=== PATIENT | male | born 1955 | race African-American/Black ===

== ENCOUNTER 2018-07-06 17:43 | Inpatient (IN) | payer OTHER ==
[2018-07-06 17:52] VITALS: BMI 24.0
--- NOTE | 2018-07-06 19:01 | PDOC ---
History of Present Illness - General Chief Complaint: Revisit,Radiology Variance Stated Complaint: ABNORMAL EKG Time Seen by Provider: 07/06/18 18:32 History Source: Patient Exam Limitations: No Limitations - History of Present Illness Initial Comments: 07/06/18 18:56 62 yo male pmh HTN and HLD presents to the ED from Urgent care for non exertional pounding in his chest that started today. Pt recently immigrated from [facility] 1 month ago, does not have PCP, is taking Losartan, statin and ASA 75 mg daily. Pt states the "pounding" in his chest began this morning while resting at home, has been constant, without CP, N/V, diaphoresis, back pain. Pt admits that these symptoms have happened in the past and have self resolved. Denies weakness F/C/N/V, CP, SOB, back pain, abdominal pain, changes in bowel or bladder habits. 07/06/18 20:33 Pts daughter at bedside helps provide HPI, states pt has had approx 3 episodes of syncope over the past 15 years, no known arrhythmias, CAD, MIs or cardiac procedures. Pt only treated for HTN and HLD. Past History - Past Medical History Allergies/Adverse Reactions: Allergies Allergy/AdvReac Type Severity Reaction Status Date / Time No Known Allergies Allergy Verified 07/06/18 17:55 Home Medications: Ambulatory Orders Atorvastatin Calcium [Lipitor] 10 mg PO DAILY 07/06/18 Losartan Potassium [Cozaar -] 50 mg PO DAILY 07/06/18 COPD: No HTN: Yes Hypercholesterolemia: Yes Lung CA: Yes (depression) - Suicide/Smoking/Psychosocial Hx Smoking History: Unknown if ever smoked Have you smoked in the past 12 months: No Information on smoking cessation initiated: No Hx Alcohol Use: No Drug/Substance Use Hx: No *Physical Exam - Vital Signs Last Vital Signs Temp Pulse Resp BP Pulse Ox 97.9 F 72 16 144/70 100 07/06/18 17:46 07/06/18 17:46 07/06/18 17:46 07/06/18 17:46 07/06/18 17:46 ED Treatment Course - LABORATORY CBC & Chemistry Diagram: 07/06/18 19:02 07/06/18 19:02 - RADIOLOGY Radiology Studies Ordered: Category Date Time Status CHEST X-RAY PORTABLE* [RAD] Stat Radiology 07/06/18 18:43 Ordered Medical Decision Making - Medical Decision Making 62 yo male pmh HTN and HLD presents to the ED from Urgent care for non exertional pounding in his chest that started today. Pt recently immigrated from [facility] 1 month ago, does not have PCP, is taking Losartan, statin and ASA 75 mg daily. Pt states the "pounding" in his chest began this morning while resting at home, has been constant, without CP, N/V, diaphoresis, back pain. Pt admits that these symptoms have happened in the past and have self resolved. Denies weakness F/C/N/V, CP, SOB, back pain, abdominal pain, changes in bowel or bladder habits. Pts daughter at bedside helps provide HPI, states pt has had approx 3 episodes of syncope over the past 15 years, no known arrhythmias, CAD, MIs or cardiac procedures. Pt only treated for HTN and HLD. Vitals stable, rate 75, BP 140s 07/06/18 20:25 Dr. Fan present in the ED, would like Lopressor 25mg BID and anticouagulation started and states he will see the pt in the AM. *DC/Admit/Observation/Transfer Diagnosis at time of Disposition: Atrial flutter Qualifiers: Atrial flutter type: unspecified Qualified Code(s): I48.92 - Unspecified atrial flutter - Discharge Dispostion Condition at time of disposition: Stable Decision to Admit order: Yes - Referrals - Patient Instructions - Post Discharge Activity
--- NOTE | 2018-07-06 19:12 | PDOC ---
Attending Attestation - Resident Resident Name: Christopher Figueroa - ED Attending Attestation I have performed the following: I have examined & evaluated the patient, The case was reviewed & discussed with the resident, I agree w/resident's findings & plan - HPI HPI: 07/06/18 19:22 62 YOM with PMH HTN, HLD, presenting from urgent care with chest pounding. the patient has constant chest pounding discomfort, unrelieved with rest. no f/c, n/ v, sob. recently from [facility] - Physicial Exam PE: 07/06/18 19:13 NAD, EOMI, PERRL, nl conjunctiva, anicteric; neck supple. lungs clear, irregularly irregular, normal rate, no murmur, abdomen soft nontender. Back nontender. CARTER x4, no peripheral edema, normal color for ethnicity, WWP. - Medical Decision Making 07/06/18 19:23 History and physical examination as documented. Vital signs within normal limits , school lunch monitor reveals a flutter with variable AV block at 75 bpm. He is appearing pretty comfortable. Exam is unremarkable. basic labs and trop/CXR. Consulted with cardiology on-call doctor she and recommended Toprol twice a day for rate control and anticoagulation to be discussed. Admit for telemetry/ evaluate for ACS, medical management. 07/09/18 13:38 Heart Score/ECG Review #1 ECG reviewed & interpreted by me at: 19:00 General ECG Interpretation: Normal Rate, Normal Intervals Compared to previous ECG there are: Previous ECG unavail 07/06/18 19:12 aflutter
[2018-07-06] MEDS ORDERED: dilTIAZem HCL 30 MG TABLET (FP) PO ONE (19:22)
[2018-07-06] MEDS ORDERED: METOPROLOL TARTRATE 25 MG TABLET (FP) PO ONE (19:22)
[2018-07-06 19:24] LABS: BASO % 1.1 % (0-2.0); EOS % 2.8 % (0-4.5); HEMATOCRIT 45.7 % (35.4-49); LYMPH % 43.8 % (8-40); MCH 32.9 pg (25.7-33.7); MCHC 32.8 g/dl (32.0-35.9); MEAN CELL VOLUME 100.2 fl (80-96); MONO % 8.6 % (3.8-10.2); NEUT % 43.7 % (42.8-82.8); PLATELET COUNT 156 K/MM3 (134-434); RBC 4.57 M/mm3 (4.00-5.60); RDW 14.3 % (11.9-15.9); WHITE BLOOD COUNT 4.1 K/mm3 (4.0-10.0)
[2018-07-06] MEDS ORDERED: ENOXAPARIN NA (PORCINE) 60 MG/0.6 ML DISP.SYRIN SQ ONE ×2 (19:29→19:30)
[2018-07-06] MEDS ORDERED: METOPROLOL TARTRATE 25 MG TABLET (FP) ONE (19:29)
[2018-07-06] MEDS ORDERED: ENOXAPARIN NA (PORCINE) 60 MG/0.6 ML DISP.SYRIN SQ SCH (19:30)
--- NOTE | 2018-07-06 19:39 | PDOC ---
*Physical Exam - Vital Signs Last Vital Signs Temp Pulse Resp BP Pulse Ox 97.9 F 72 16 144/70 100 07/06/18 17:46 07/06/18 17:46 07/06/18 17:46 07/06/18 17:46 07/06/18 17:46 ED Treatment Course - LABORATORY CBC & Chemistry Diagram: 07/06/18 19:02 07/07/18 06:35 - ADDITIONAL ORDERS Additional order review: 07/06/18 19:02 RBC 4.57 MCV 100.2 H MCHC 32.8 RDW 14.3 MPV 9.0 Neutrophils % 43.7 Lymphocytes % 43.8 H Monocytes % 8.6 Eosinophils % 2.8 Basophils % 1.1 Medical Decision Making - Medical Decision Making 07/06/18 19:33 Pt signed out to me at signout. We sidelined the service delivery management consultant who was in the ER, and he is recommending lopressor BID. Cardiology will see the patient tomorrow. Pt is comfortable at this time. He is in aflutter; comes with an EKG showing aflutter from the clinic earlier today. 07/06/18 20:06 07/06/18 20:07 Pt has normal labs; trop is negative. Pt has clear AP CXR *DC/Admit/Observation/Transfer Diagnosis at time of Disposition: Atrial flutter - Discharge Dispostion Condition at time of disposition: Stable - Referrals - Patient Instructions - Post Discharge Activity
[2018-07-06 19:56] LABS: ALBUMIN 3.8 g/dl (3.4-5.0); ALK PHOS 61 U/L (45-117); ANION GAP 8 MMOL/L (8-16); BILIRUBIN,TOTAL 0.5 mg/dL (0.2-1); BLOOD UREA NITROGEN 15 mg/dL (7-18); CALCIUM 9.2 mg/dL (8.5-10.1); CHLORIDE 106 mmol/L (98-107); CHOLESTEROL 158 mg/dL (50-200); CO2 28 mmol/L (21-32); CREATININE 1.4 mg/dL (0.55-1.3); GLUCOSE,RANDOM 87 mg/dL (74-106); N-TERMINAL BNP 354.4 pg/ml (5-125); POTASSIUM 4.8 mmol/L (3.5-5.1); SGOT/AST 20 U/L (15-37); SGPT/ALT 19 U/L (13-61); SODIUM 141 mmol/L (136-145); TOT PROT 7.2 g/dl (6.4-8.2)
[2018-07-06 20:37] LABS: INR 0.98 (0.83-1.09); PROTHROMBIN TIME (PATIENT) 11.6 SEC (9.7-13.0)
[2018-07-06 20:40] LABS: ACTIVATED PTT 36.1 SECONDS (25.2-36.5)
--- NOTE | 2018-07-06 20:56 | PN ---
Teaching Attending Note Name of Resident: Kristy Parra ATTENDING PHYSICIAN STATEMENT I saw and evaluated the patient. I reviewed the resident's note and discussed the case with the resident. I agree with the resident's findings and plan as documented. SUBJECTIVE: Patient is a 62 year old man with PMH of HTN and HLD presents to the ER from Urgent care for non exertional pounding in his chest that started today. He recently immigrated from [facility] 1 month ago, does not have PCP, is taking Losartan, statin and ASA 75 mg daily. Patient states the "pounding" in his chest began this morning while resting at home, has been constant, without chest pain, nausea, vomiting, diaphoresis or back pain. Patient admits that these symptoms have happened in the past and have self resolved. Denies weakness , fever, chills, SOB, back pain, abdominal pain, changes in bowel or bladder habits. OBJECTIVE: Alert Vital Signs Period Temp Pulse Resp BP Sys/Rey Pulse Ox Last 24 Hr 97.9 F 72-74 16-17 138-144/70-75 100-100 HEENT: No Jaundice, eye redness or discharge, PERRLA, EOMI. Normocephalic, atraumatic. External ears are normal and hearing is grossly intact. No nasal discharge. Neck: Supple, nontender. No palpable adenopathy or thyromegaly. No JVD Chest: Good effort. Clear to auscultation and percussion. Heart: Regular. No S3, rub or murmur Abdomen: Not distended, soft, nontender and no HSM. No rebound or guarding. Normal bowel sounds. Ext: Peripheral pulses intact. No leg edema. Skin: Warm and dry. No petechiae, rash or ecchymosis. Neuro: Alert. Oriented x3. CN 2-12 grossly intact. Sensation grossly intact in all four extremities and DTR are symmetric. Psych: Appropriate mood and affect. Good insight. Current Medications Generic Name Dose Route Start Last Admin Trade Name Freq PRN Reason Stop Dose Admin Atorvastatin Calcium 10 mg 07/07/18 10:00 Lipitor - PO DAILY EMELY Enoxaparin Sodium 63 mg 07/06/18 19:30 07/06/18 19:38 Lovenox - SQ 63 mg ONCE EMELY Administration Sodium Chloride 1,000 mls @ 75 mls/hr 07/06/18 21:15 Normal Saline - IV ASDIR [facility] Home Medications Medication Instructions Recorded Aspirin 75 mg PO DAILY 07/06/18 Atorvastatin Calcium [Lipitor] 10 mg PO DAILY 07/06/18 Losartan Potassium [Cozaar -] 50 mg PO DAILY 07/06/18 Abnormal Lab Results 07/06/18 07/06/18 19:02 19:02 MCV 100.2 H Lymphocytes % 43.8 H Creatinine 1.4 H B-Natriuretic Peptide 354.4 H ASSESSMENT AND PLAN: 1. Atrial flutter - Palpitations likely due to atrial flutter. EKG shows atrial flutter with a rate of 75/minute. Cardiology was consulted and patient is being started on Metoprolol 25 mg bid and lovenox. Initial troponin is negative. No abnormality on CXR. Will admit to telemetry to rule out ACS, get fasting lipids , ECHO, TSH and HbA1c. 2. JASPREET? - Will hold lisinopril, get urinalysis, urine protein/creatinine ratio, kidney sonogram, phosphate and PTH. Hydrate gently. Will avoid nephrotoxic agents such as NSAIDS, aminoglycosides, contrast dyes and certain Alternative medicine products. 3. Hypertension - Restart appropriate outpatient antihypertensive drugs. Hold Lisinopril for now and add HCTZ 12.5 mg qd. Nonpharmacologic measures to control hypertension like weight loss, salt restriction and exercise discussed. 4. DVT prophylaxis - On full dose Lovenox for Atrial flutter. 5. Advance directives - Full code
[2018-07-06] MEDS ORDERED: SODIUM CHLORIDE 1,000 ML IV SCH (21:15)
--- NOTE | 2018-07-06 21:40 | HP ---
CHIEF COMPLAINT: aflutter PCP: none; just moved. PMD in [place] HISTORY OF PRESENT ILLNESS: 62 y/o M with PMH HTN, HLD, ?arrhythmia, who presents to the ED who presents from urgent care c/o sensation of chest pounding and palpitations which began today. As per pt, this AM he developed sudden palpitations when he was at rest. States it was intermittent. Lasting for a few seconds before dissipating and then w/recurrence. Not associated with chest pain or SOB. This sensation continued when pt was at an urgent care today getting a routine physical exam. He was recommended to get an EKG as per routine of the checkup, however was found to have aflutter thus he was told to go to the ED for further evaluation. Denies ERNST, fever, chills, SOB, diaphoresis, or changes in urinary or bowel function. Of note, pt moved from [facility] one month ago. Got his insurance 1 week ago, and plans on residing in this country. Daughter at bedside is a nurse - states he has had multiple episodes of syncope while in [facility]. Had w/u done with ECHO however was never told the result. At home takes asa 75mg (different dose there) , losartan 50mg qd, lipitor 10mg qd. Pt ambulates on own at baseline. ER course was notable for: (1) aflutter , rate 75bpm (2) (3) Recent Travel: denies PAST MEDICAL HISTORY: as above PAST SURGICAL HISTORY: denies Social History: used to work as an corporate staff accountant Smoking: denies Alcohol: denies Drugs: denies Family History: HTN - sisters, brothers Allergies No Known Allergies Allergy (Verified 07/06/18 17:55) HOME MEDICATIONS: Home Medications Medication Instructions Recorded Aspirin 75 mg PO DAILY 07/06/18 Atorvastatin Calcium [Lipitor] 10 mg PO DAILY 07/06/18 Losartan Potassium [Cozaar -] 50 mg PO DAILY 07/06/18 confirmed with daughter REVIEW OF SYSTEMS CONSTITUTIONAL: Absent: fever, chills, diaphoresis, generalized weakness, malaise, loss of appetite, weight change HEENT: Absent: rhinorrhea, nasal congestion, throat pain, throat swelling, difficulty swallowing, mouth swelling, ear pain, eye pain, visual changes CARDIOVASCULAR: Absent: chest pain, syncope, palpitations, irregular heart rate, lightheadedness , peripheral edema RESPIRATORY: Absent: cough, shortness of breath, dyspnea with exertion, orthopnea, wheezing, stridor, hemoptysis GASTROINTESTINAL: Absent: abdominal pain, abdominal distension, nausea, vomiting, diarrhea, constipation, melena, hematochezia GENITOURINARY: Absent: dysuria, frequency, urgency, hesitancy, hematuria, flank pain, genital pain MUSCULOSKELETAL: Absent: myalgia, arthralgia, joint swelling, back pain, neck pain SKIN: Absent: rash, itching, pallor HEMATOLOGIC/IMMUNOLOGIC: Absent: easy bleeding, easy bruising, lymphadenopathy, frequent infections ENDOCRINE: Absent: unexplained weight gain, unexplained weight loss, heat intolerance, cold intolerance NEUROLOGIC: Absent: headache, focal weakness or paresthesias, dizziness, unsteady gait, seizure, mental status changes, bladder or bowel incontinence PSYCHIATRIC: Absent: anxiety, depression, suicidal or homicidal ideation, hallucinations. PHYSICAL EXAMINATION Vital Signs 07/06/18 07/06/18 17:46 19:38 Temperature 97.9 F Pulse Rate 72 Pulse Rate [ 74 Apical] Respiratory 16 17 Rate Blood Pressure 144/70 Blood Pressure 138/75 [Right Arm] O2 Sat by Pulse 100 100 Oximetry (%) GENERAL: Awake, alert, and fully oriented, in no acute distress. HEAD: Normal with no signs of trauma. EYES: Pupils equal, round and reactive to light, extraocular movements intact, sclera anicteric, conjunctiva clear. EARS, NOSE, THROAT: Ears normal, nares patent, oropharynx clear without exudates. Moist mucous membranes. NECK: Normal range of motion, supple without lymphadenopathy LUNGS: Breath sounds equal, clear to auscultation bilaterally. No wheezes, and no crackles. No accessory muscle use. HEART: +irreg irreg rate and rhythm, normal S1 and S2 without murmur, rub or gallop. ABDOMEN: Soft, nontender, not distended, normoactive bowel sounds, no guarding, no rebound, no masses. LOWER EXTREMITIES: 2+ pt pulses, warm, well-perfused. No calf tenderness. No peripheral edema. NEUROLOGICAL: Cranial nerves II-XII intact. PSYCHIATRIC: Cooperative. Good eye contact. Laboratory Results 07/06/18 07/06/18 07/06/18 19:02 19:02 19:02 WBC 4.1 RBC 4.57 Hgb 15.0 Hct 45.7 MCV 100.2 H MCH 32.9 MCHC 32.8 RDW 14.3 Plt Count 156 MPV 9.0 Absolute Neuts (auto) 1.8 Neutrophils % 43.7 Lymphocytes % 43.8 H Monocytes % 8.6 Eosinophils % 2.8 Basophils % 1.1 Nucleated RBC % 0 PT with INR 11.60 INR 0.98 PTT (Actin FS) 36.1 Sodium 141 Potassium 4.8 Chloride 106 Carbon Dioxide 28 Anion Gap 8 BUN 15 Creatinine 1.4 H Est GFR (CKD-EPI)AfAm 61.97 Est GFR (CKD-EPI)NonAf 53.47 Random Glucose 87 Calcium 9.2 Total Bilirubin 0.5 AST 20 ALT 19 Alkaline Phosphatase 61 Creatine Kinase 158 Creatine Kinase Index 0.8 CK-MB (CK-2) 1.4 Troponin I < 0.02 B-Natriuretic Peptide 354.4 H Total Protein 7.2 Albumin 3.8 Cholesterol 158 TSH 3.17 ASSESSMENT/PLAN: 62 y/o M with PMH HTN, HLD, ?arrhythmia, who presents to the ED who presents from urgent care c/o sensation of chest pounding and palpitations which began today. #new aflutter -may have caused eps of syncope in past -for now rate controlled. c/w met tartate 25 mg BID. lopressor 5mg IVP q6h PRN if becomes uncontrolled -seen by cardio in ED. started on a/c lovenox 63mg PO x 1 . will give another dose tomorrow AM (1mg/kg BID ) and then can decide oral agent -f/u ECHO to determine if valvular involvement -f/u lipid profile, a1c. K>4, Mg>2. -c/w lipitor -TSH WNL -Cardio consult: Dr. Fan. saw in ED #HTN- controlled -c/w met tartate 25 BID -can start on hctz 12.5mg PO qd for additional agent as will hold ARB for now #JASPREET vs. JASPREET on CKD -f/u UA, u prot/creat ratio -f/u renal sono -gentle IVF ; IV NS 75 cc/hr #HLD -c/w lipitor #F/E/N IV NS 75 cc/hr continue to follow lytes na controlled diet #PPX on lovenox. cr clearance 49. cont dosing as above 30 #Dispo admit to tele Visit type - Emergency Visit Emergency Visit: Yes ED Registration Date: 07/06/18 Care time: The patient presented to the Emergency Department on the above date and was hospitalized for further evaluation of their emergent condition. - New Patient This patient is new to me today: Yes Date on this admission: 07/06/18 - Critical Care Critical Care patient: No
[2018-07-06] MEDS: ATORVASTATIN CA 10 MG TABLET (FP) PO SCH (22:21)
[2018-07-07] MEDS ORDERED: METOPROLOL TARTRATE 5 MG/5 ML VIAL IVPUSH PRN (02:44)
[2018-07-07] MEDS ORDERED: ENOXAPARIN NA (PORCINE) 60 MG/0.6 ML DISP.SYRIN SQ ONE (08:00)
[2018-07-07 08:13] LABS: ALBUMIN 3.4 g/dl (3.4-5.0); ALK PHOS 56 U/L (45-117); ANION GAP 6 MMOL/L (8-16); BILIRUBIN,TOTAL 0.6 mg/dL (0.2-1); BLOOD UREA NITROGEN 16 mg/dL (7-18); CALCIUM 8.3 mg/dL (8.5-10.1); CHLORIDE 108 mmol/L (98-107); CO2 29 mmol/L (21-32); CREATININE 1.4 mg/dL (0.55-1.3); GLUCOSE,RANDOM 78 mg/dL (74-106); MAGNESIUM 2.3 mg/dL (1.8-2.4); PHOSPHOROUS 3.5 mg/dL (2.5-4.9); POTASSIUM 4.3 mmol/L (3.5-5.1); SGOT/AST 14 U/L (15-37); SGPT/ALT 17 U/L (13-61); SODIUM 142 mmol/L (136-145); TOT PROT 6.5 g/dl (6.4-8.2)
[2018-07-07] MEDS: METOPROLOL TARTRATE 25 MG TABLET (FP) PO SCH ×2 (09:01→22:23)
[2018-07-07] MEDS ORDERED: HYDROCHLOROTHIAZIDE 12.5 MG CAPSULE (FP) PO SCH (10:00)
--- NOTE | 2018-07-07 12:22 | PN ---
Progress Note (short form) - Note Progress Note: continues to have CP but more of discomfort now then pain. states he has these episode intermittently but can not provide how often they occur. denies fever, chills, N/V/C/D. does not know if he has kidney issues Current Medications Generic Name Dose Route Start Last Admin Trade Name Freq PRN Reason Stop Dose Admin Atorvastatin Calcium 10 mg 07/06/18 22:00 07/06/18 22:21 Lipitor - PO 10 mg HS EMELY Administration Hydrochlorothiazide 12.5 mg 07/07/18 10:00 07/07/18 09:02 Hctz - PO 12.5 mg DAILY EMELY Administration Sodium Chloride 1,000 mls @ 75 mls/hr 07/06/18 21:15 07/06/18 22:21 Normal Saline - IV 75 mls/hr ASDIR EMELY Administration Metoprolol Tartrate 25 mg 07/07/18 10:00 07/07/18 09:01 Lopressor - PO 25 mg BID EMELY Administration Metoprolol Tartrate 5 mg 07/07/18 02:44 Lopressor Injection - IVPUSH Q6H PRN TACHYCARDIA Last Vital Signs Temp Pulse Resp BP Pulse Ox 96.3 F L 86 18 103/68 100 07/07/18 09:15 07/07/18 09:15 07/07/18 09:15 07/07/18 09:15 07/06/18 21:39 General NAD CV S1 S2 tachy Lungs CTA B/L no wheezing/rales/rhonchi abdomen soft NT/ND Extremities No edema CBCD WBC 4.1 K/mm3 (4.0-10.0) 07/06/18 19:02 RBC 4.57 M/mm3 (4.00-5.60) 07/06/18 19:02 Hgb 15.0 GM/dL (11.7-16.9) 07/06/18 19:02 Hct 45.7 % (35.4-49) 07/06/18 19:02 MCV 100.2 fl (80-96) H 07/06/18 19:02 MCHC 32.8 g/dl (32.0-35.9) 07/06/18 19:02 RDW 14.3 % (11.9-15.9) 07/06/18 19:02 Plt Count 156 K/MM3 (134-434) 07/06/18 19:02 MPV 9.0 fl (7.5-11.1) 07/06/18 19:02 CMP Sodium 142 mmol/L (136-145) 07/07/18 06:35 Potassium 4.3 mmol/L (3.5-5.1) 07/07/18 06:35 Chloride 108 mmol/L (98-107) H 07/07/18 06:35 Carbon Dioxide 29 mmol/L (21-32) 07/07/18 06:35 Anion Gap 6 MMOL/L (8-16) L 07/07/18 06:35 BUN 16 mg/dL (7-18) 07/07/18 06:35 Creatinine 1.4 mg/dL (0.55-1.3) H 07/07/18 06:35 Calcium 8.3 mg/dL (8.5-10.1) L 07/07/18 06:35 Total Bilirubin 0.6 mg/dL (0.2-1) 07/07/18 06:35 AST 14 U/L (15-37) L 07/07/18 06:35 ALT 17 U/L (13-61) 07/07/18 06:35 Alkaline Phosphatase 56 U/L (45-117) 07/07/18 06:35 Total Protein 6.5 g/dl (6.4-8.2) 07/07/18 06:35 Albumin 3.4 g/dl (3.4-5.0) 07/07/18 06:35 A/P 62yo M with PMH HTN and dyslipidemia presented to the ER with CP and found to be in aflutter 1. New onset aflutter- currently with 3:1 block. [id number] 1. received lovenox in the Er yesterday. will hold on anticoagulation. will start asa. rate is currently controlled with betablocker. cardio consulted. echo pending. will need ischemia eval 2. JASPREET- due to medications vs CKD. uknown baseline. none reported here. renal u/ s pending. cont low dose IVF. if renal function remains the same likely chronic. will try to obtain baseline values on monday. will hold HCTZ. avoid nephrotoxic agents 3. HTN- controlled. hold HCTZ. start new medications if needed 4. Dyslipidemia- check lipid panel. on low intensity statin 5. DVT ppx- hep sq Visit type - Emergency Visit Emergency Visit: Yes ED Registration Date: 07/06/18 Care time: The patient presented to the Emergency Department on the above date and was hospitalized for further evaluation of their emergent condition. - New Patient This patient is new to me today: Yes Date on this admission: 07/07/18 - Critical Care Critical Care patient: No - Discharge Referral Referred to [facility] No
[2018-07-07] MEDS ORDERED: ASPIRIN 81 MG CHEWABLE TABLETS PO SCH (12:30)
[2018-07-07] MEDS ORDERED: HEPARIN NA (PORCINE) 5,000 UNITS/ML 1ML VIAL SQ SCH (14:00)
--- NOTE | 2018-07-07 16:17 | CON.CARD ---
Consult Consult Specialty:: Cardiology Referred by:: Hospitalist Medicine Reason for Consultation:: Rapid aflutter - History of Present Illness Chief Complaint: Palpitations History of Present Illness: Patient is a 62 year old man with PMH of HTN and HLD presents to the ER from Urgent care for palpitations, chronic exertional angina and dyspnea over many years found to be in rate-controlled aflutter. He recently immigrated from [facility] 1 month ago, is taking Losartan 50 qd, Lipitor 10 qd and ASA 75 mg daily. Patient states the "pounding" in his chest began this morning while resting at home, has been constant, without chest pain, near or true syncope, orthopnea, PND or LE edema - History Source History Provided By: Patient Limitations to Obtaining History: No Limitations - Past Medical History Cardio/Vascular: Yes: HTN, Hyperlipdemia - Alcohol/Substance Use Hx Alcohol Use: No - Smoking History Smoking history: Unknown if ever smoked Have you smoked in the past 12 months: No Home Medications - Allergies Allergies/Adverse Reactions: Allergies Allergy/AdvReac Type Severity Reaction Status Date / Time No Known Allergies Allergy Verified 07/06/18 17:55 - Home Medications Home Medications: Ambulatory Orders Aspirin 75 mg PO DAILY 07/06/18 Atorvastatin Calcium [Lipitor] 10 mg PO DAILY 07/06/18 Losartan Potassium [Cozaar -] 50 mg PO DAILY 07/06/18 Review of Systems - Review of Systems Cardiovascular: reports: Chest Pain, Palpitations Respiratory: reports: SOB on Exertion Vital Signs: Vital Signs Temperature 98.4 F 07/07/18 14:00 Pulse Rate 54 L 07/07/18 14:00 Respiratory Rate 20 07/07/18 14:00 Blood Pressure 97/55 L 07/07/18 14:00 O2 Sat by Pulse Oximetry (%) 100 07/06/18 21:39 Constitutional: Yes: No Distress, Calm, Thin Neck: Yes: Supple Respiratory: Yes: Regular, CTA Bilaterally Gastrointestinal: Yes: Normal Bowel Sounds, Soft Cardiovascular: Yes: Regular Rate and Rhythm JVD: No Carotid Bruit: No Heart Sounds: Yes: S1, S2 Edema: No - Other Data Labs, Other Data: CBC, BMP 07/06/18 19:02 07/07/18 06:35 INR, PTT INR 0.98 (0.83-1.09) 07/06/18 19:02 Troponin, BNP 07/06/18 07/07/18 19:02 06:35 Troponin I < 0.02 < 0.02 B-Natriuretic Peptide 354.4 H Troponin, BNP 07/06/18 07/07/18 19:02 06:35 Troponin I < 0.02 < 0.02 B-Natriuretic Peptide 354.4 H Aflutter @ 75 Imaging - Results Chest X-ray: Report Reviewed (NAD) Ultrasound: Report Reviewed (Normal renal US) Problem List - Problems (1) Hypertensive heart disease Code(s): I11.9 - HYPERTENSIVE HEART DISEASE WITHOUT HEART FAILURE Qualifiers: Heart failure presence: without heart failure Qualified Code(s): I11.9 - Hypertensive heart disease without heart failure (2) Hyperlipidemia Code(s): E78.5 - HYPERLIPIDEMIA, UNSPECIFIED Qualifiers: Hyperlipidemia type: pure hypercholesterolemia Qualified Code(s): E78.00 - Pure hypercholesterolemia, unspecified; E78.0 - Pure hypercholesterolemia (3) Atrial flutter Code(s): I48.92 - UNSPECIFIED ATRIAL FLUTTER Qualifiers: Atrial flutter type: typical Qualified Code(s): I48.3 - Typical atrial flutter Assessment/Plan 1. Newly diagnosed rate-controlled aflutter [id number] 2. JASPREET vs CKD 3. Htn heart disease 4. Hyperlipidemia 5. Exertional chest pain and dyspnea P:1. Continue lopressor 25 bid, resume losartan 50 qd once renal fxn stable, lipitor 10 qd per lipid panel, change ASA to Xarelto 20 qpm for possible DCCV attempt in future 2. Check echo to assess ventricular and valve fxn 3. Eventual stress testing for chronic exertional sxs, may be performed as outpatient 4. Thank you for consultative opportunity
[2018-07-07] MEDS: RIVAROXABAN 20 MG TABLET PO SCH (17:20)
[2018-07-07] MEDS: ATORVASTATIN CA 10 MG TABLET (FP) PO SCH (22:22)
[2018-07-08 06:33] LABS: CALCIUM 9.5 mg/dL (8.5-10.1); CREATININE 1.4 mg/dL (0.55-1.3); POTASSIUM 4.1 mmol/L (3.5-5.1)
[2018-07-08] MEDS: METOPROLOL TARTRATE 25 MG TABLET (FP) PO SCH ×2 (09:28→22:19)
--- NOTE | 2018-07-08 10:18 | PN ---
Teaching Attending Note Name of Resident: Kristy Parra ATTENDING PHYSICIAN STATEMENT I saw and evaluated the patient. I reviewed the resident's note and discussed the case with the resident. I agree with the resident's findings and plan as documented. SUBJECTIVE: Denies any chest pain/palpitations/lightheadedness/sweating. No cough/sputum. No fever/chills. OBJECTIVE: Afebrile, Hemodynamically Stable Last Vital Signs Temp Pulse Resp BP Pulse Ox 97.6 F 74 18 126/72 99 07/08/18 06:27 07/08/18 09:27 07/08/18 09:27 07/08/18 09:27 07/07/18 20:32 HEENT- Atraumatic, Normocephalic. Heart - S1, S2, irregular Lungs - clear to auscultation Abdomen - Soft, non-tender. Bowel Sounds normal. Extremities - no edema, no calf tenderness. Laboratory Results - last 24 hr 07/07/18 07/08/18 06:35 05:30 Sodium 142 141 Potassium 4.3 4.1 Chloride 108 H 105 Carbon Dioxide 29 29 Anion Gap 6 L 7 L BUN 16 16 Creatinine 1.4 H 1.4 H Est GFR (CKD-EPI)AfAm 61.97 61.97 Est GFR (CKD-EPI)NonAf 53.47 53.47 Random Glucose 78 82 Calcium 8.3 L 9.5 Phosphorus 3.5 Magnesium 2.3 Total Bilirubin 0.6 AST 14 L ALT 17 Alkaline Phosphatase 56 Troponin I < 0.02 Total Protein 6.5 Albumin 3.4 Current Medications Generic Name Dose Route Start Last Admin Trade Name Freq PRN Reason Stop Dose Admin Atorvastatin Calcium 10 mg 07/06/18 22:00 07/07/18 22:22 Lipitor - PO 10 mg HS EMELY Administration Sodium Chloride 1,000 mls @ 75 mls/hr 07/06/18 21:15 07/06/18 22:21 Normal Saline - IV 75 mls/hr ASDIR EMELY Administration Metoprolol Tartrate 25 mg 07/07/18 10:00 07/08/18 09:28 Lopressor - PO 25 mg BID EMELY Administration Metoprolol Tartrate 5 mg 07/07/18 02:44 Lopressor Injection - IVPUSH Q6H PRN TACHYCARDIA Rivaroxaban 20 mg 07/07/18 18:00 07/07/18 17:20 Xarelto PO 20 mg DAILY@1800 EMELY Administration ASSESSMENT AND PLAN: 62 year old male with history of HTN, HLD pesented with CP and found to be in atrial flutter. 1. Newly recognized Atrial Flutter Evaluated by Cardio - Started on AC with Xarelto. Continue Lopressor. Echo scheduled for tomorrow. Cardioversion +/- Stress test as out-patient. 2. CKD 3 - appears stable. Renal US - no acute findings/no obstruction HCTZ held. 3. HTN - HCTZ held in favor of Metoprolol given newly recognized Atrial Flutter. 4. HLD - Continue Statin. Fasting lipid panel in AM 5. Macrocystosis - B12/Folate levels requested. DVT Px - on Xarelto
--- NOTE | 2018-07-08 10:28 | PN ---
Progress Note, Physician History of Present Illness: Remains in rate-controlled aflutter, denies palpitations. - Current Medication List Current Medications: Active Medications Atorvastatin Calcium (Lipitor -) 10 mg PO HS [facility] Last Admin: 07/07/18 22:22 Dose: 10 mg Sodium Chloride (Normal Saline -) 1,000 mls @ 75 mls/hr IV ASDIR [facility] Last Admin: 07/06/18 22:21 Dose: 75 mls/hr Metoprolol Tartrate (Lopressor -) 25 mg PO BID [facility] Last Admin: 07/08/18 09:28 Dose: 25 mg Metoprolol Tartrate (Lopressor Injection -) 5 mg IVPUSH Q6H PRN PRN Reason: TACHYCARDIA Rivaroxaban (Xarelto) 20 mg PO DAILY@1800 [facility] Last Admin: 07/07/18 17:20 Dose: 20 mg - Objective Vital Signs: Vital Signs Temperature 97.6 F 07/08/18 06:27 Pulse Rate 74 07/08/18 09:27 Respiratory Rate 18 07/08/18 09:27 Blood Pressure 126/72 07/08/18 09:27 O2 Sat by Pulse Oximetry (%) 99 07/07/18 20:32 Constitutional: Yes: No Distress, Calm, Thin Neck: Yes: Supple Cardiovascular: Yes: Regular Rate and Rhythm Respiratory: Yes: Regular, CTA Bilaterally Gastrointestinal: Yes: Normal Bowel Sounds, Soft Edema: No Labs: CBC, BMP 07/06/18 19:02 07/08/18 05:30 INR, PTT INR 0.98 (0.83-1.09) 07/06/18 19:02 - ....Imaging EKG: Report Reviewed (Tele: Aflutter rate-controlled) Problem List - Problems (1) Hypertensive heart disease Code(s): I11.9 - HYPERTENSIVE HEART DISEASE WITHOUT HEART FAILURE Qualifiers: Heart failure presence: without heart failure Qualified Code(s): I11.9 - Hypertensive heart disease without heart failure (2) Hyperlipidemia Code(s): E78.5 - HYPERLIPIDEMIA, UNSPECIFIED Qualifiers: Hyperlipidemia type: pure hypercholesterolemia Qualified Code(s): E78.00 - Pure hypercholesterolemia, unspecified; E78.0 - Pure hypercholesterolemia (3) Atrial flutter Code(s): I48.92 - UNSPECIFIED ATRIAL FLUTTER Qualifiers: Atrial flutter type: typical Qualified Code(s): I48.3 - Typical atrial flutter Assessment/Plan 1. Newly diagnosed rate-controlled aflutter [id number] 2. CKD 3. Htn heart disease 4. Hyperlipidemia 5. Exertional chest pain and dyspnea P:1. Continue lopressor 25 bid, resume losartan 25 qd as renal fxn stable, lipitor 10 qd per lipid panel, Xarelto 20 qpm for possible DCCV attempt in future 2. Check echo to assess ventricular and valve fxn 3. Eventual stress testing for chronic exertional sxs, may be performed as outpatient
--- NOTE | 2018-07-08 12:41 | PN ---
Physical Exam: SUBJECTIVE: Patient seen and examined at bedside. Without complaint. No chest pain or palpitations. Controlled aflutter. Happily talking on the phone OBJECTIVE: Vital Signs Period Temp Pulse Resp BP Sys/Rey Pulse Ox Last 24 Hr 97.6 F-98.4 F 54-78 18-20 97-144/55-91 99 GENERAL: The patient is awake, alert, and fully oriented, in no acute distress. HEAD: Normal with no signs of trauma. EYES: PERRL, extraocular movements intact, sclera anicteric, conjunctiva clear. ENT: Ears normal, nares patent, oropharynx clear without exudates, moist mucous membranes. NECK: Trachea midline, supple. LUNGS: Breath sounds equal, clear to auscultation bilaterally, no wheezes, no crackles, no accessory muscle use. HEART: +aflutter. no r/m/g ABDOMEN: Soft, nontender, nondistended, normoactive bowel sounds, no guarding EXTREMITIES: thin. 2+ pt pulses, warm, well-perfused, no edema. NEUROLOGICAL: Cranial nerves II through XII grossly intact. Normal speech PSYCH: Normal mood, normal affect. SKIN: Warm, dry, normal turgor Laboratory Results 07/08/18 05:30 Sodium 141 Potassium 4.1 Chloride 105 Carbon Dioxide 29 Anion Gap 7 L BUN 16 Creatinine 1.4 H Est GFR (CKD-EPI)AfAm 61.97 Est GFR (CKD-EPI)NonAf 53.47 Random Glucose 82 Calcium 9.5 Vitamin B12 565 Serum Folate 10 ASSESSMENT/PLAN: 62 y/o M with PMH HTN, HLD, ?arrhythmia, who presents to the ED who presents from urgent care c/o sensation of chest pounding and palpitations x1 day. #new aflutter -c/w rate control met tart 25mg BID, restarted on losartan as pt renal fnc has been w/o change during hospitalization (Cr 1.4) -c/w xarelto 20mg PO qd for a/c, lipitor 10mg qd -as per cardio, will need eventual DCCV. for now controlled, as well as outpt stress test -f/u ECHO. can be d/c if WNL -cardio: Dr. Fan #HTN- controlled -c/w met tartate 25 BID -c/w losartan 25mg PO qd . dose was changed from 50>25 #CKD -stable; cont to monitor -w/o abnormality on renal sono #macrocytic anemia -b12, folate WNL #HLD -c/w lipitor #F/E/N no need for IVF at this time continue to follow lytes na controlled diet #PPX on xarelto #Dispo continue monitoring on tele anticipate d/c 24 hrs if ECHO WNL . with cardio f/u Visit type - Emergency Visit Emergency Visit: No - New Patient This patient is new to me today: No - Critical Care Critical Care patient: No
[2018-07-08] MEDS: LOSARTAN POTASSIUM 25 MG TABLET PO SCH (12:50)
--- NOTE | 2018-07-08 15:27 | EKG ---
Test Reason : Blood Pressure : / mmHG Vent. Rate : 075 BPM Atrial Rate : 225 BPM P-R Int : 000 ms QRS Dur : 074 ms QT Int : 436 ms P-R-T Axes : 090 067 074 degrees QTc Int : 486 ms ATRIAL FLUTTER WITH VARIABLE A-V BLOCK POOR R WAVE PROGRESSION ABNORMAL ECG NO PREVIOUS ECGS AVAILABLE Confirmed by JAMI ORTIZ MD ([id number]) on 07/08/2018 3:26:47 PM Referred By: Confirmed By:JAMI ORTIZ MD
[2018-07-08] MEDS: RIVAROXABAN 20 MG TABLET PO SCH (18:14)
[2018-07-08] MEDS ORDERED: PT OWN MED DRAWER 7, Y5N ONE (22:16)
[2018-07-08] MEDS: ATORVASTATIN CA 10 MG TABLET (FP) PO SCH (22:19)
[2018-07-09 07:42] LABS: CALCIUM 9.4 mg/dL (8.5-10.1); CREATININE 1.4 mg/dL (0.55-1.3); MAGNESIUM 2.4 mg/dL (1.8-2.4); PHOSPHOROUS 3.4 mg/dL (2.5-4.9)
[2018-07-09] MEDS: METOPROLOL TARTRATE 25 MG TABLET (FP) PO SCH (09:55)
[2018-07-09] MEDS: LOSARTAN POTASSIUM 25 MG TABLET PO SCH (09:55)
--- NOTE | 2018-07-09 10:16 | PN ---
Progress Note, Physician History of Present Illness: Remains in rate-controlled aflutter, denies palpitations. - Current Medication List Current Medications: Active Medications Atorvastatin Calcium (Lipitor -) 10 mg PO HS [facility] Last Admin: 07/08/18 22:19 Dose: 10 mg Losartan Potassium (Cozaar -) 25 mg PO DAILY [facility] Last Admin: 07/09/18 09:55 Dose: 25 mg Metoprolol Tartrate (Lopressor -) 25 mg PO BID [facility] Last Admin: 07/09/18 09:55 Dose: 25 mg Metoprolol Tartrate (Lopressor Injection -) 5 mg IVPUSH Q6H PRN PRN Reason: TACHYCARDIA Rivaroxaban (Xarelto) 20 mg PO DAILY@1800 [facility] Last Admin: 07/08/18 18:14 Dose: 20 mg - Objective Vital Signs: Vital Signs Temperature 97.8 F 07/09/18 05:58 Pulse Rate 80 07/09/18 05:58 Respiratory Rate 20 07/09/18 05:58 Blood Pressure 115/60 07/09/18 05:58 O2 Sat by Pulse Oximetry (%) 99 07/08/18 21:00 Constitutional: Yes: No Distress, Calm, Thin Neck: Yes: Supple Cardiovascular: Yes: Regular Rate and Rhythm Respiratory: Yes: Regular, CTA Bilaterally Gastrointestinal: Yes: Normal Bowel Sounds, Soft Edema: No Labs: CBC, BMP 07/06/18 19:02 07/09/18 06:22 INR, PTT INR 0.98 (0.83-1.09) 07/06/18 19:02 Problem List - Problems (1) Hypertensive heart disease Code(s): I11.9 - HYPERTENSIVE HEART DISEASE WITHOUT HEART FAILURE Qualifiers: Heart failure presence: without heart failure Qualified Code(s): I11.9 - Hypertensive heart disease without heart failure (2) Hyperlipidemia Code(s): E78.5 - HYPERLIPIDEMIA, UNSPECIFIED Qualifiers: Hyperlipidemia type: pure hypercholesterolemia Qualified Code(s): E78.00 - Pure hypercholesterolemia, unspecified; E78.0 - Pure hypercholesterolemia (3) Atrial flutter Code(s): I48.92 - UNSPECIFIED ATRIAL FLUTTER Qualifiers: Atrial flutter type: typical Qualified Code(s): I48.3 - Typical atrial flutter Assessment/Plan 1. Newly diagnosed rate-controlled aflutter [id number] 2. CKD 3. Htn heart disease 4. Hyperlipidemia 5. Exertional chest pain and dyspnea P:1. Continue lopressor 25 bid, losartan 25 qd as renal fxn stable, lipitor 10 qd per lipid panel, Xarelto 20 qpm for possible DCCV attempt in future 2. Check echo to assess ventricular and valve fxn 3. Eventual stress testing for chronic exertional sxs, may be performed as outpatient
[2018-07-09 11:09] VITALS: BP 126/88; PULSE 77; TEMP 97.9
--- NOTE | 2018-07-09 12:55 | ECHO ---
Name: ZEB GREY Exam:Adult Echocardiogram Study Date: 07/09/2018 08:35 AM Age: 62 yrs Reason For Study: a flutter, check valves Height: 66 in Weight: 140 lb BSA: 1.7 m2 MMode/2D Measurements & Calculations RVDd: 2.9 cm Ao root diam: 3.3 cm IVSd: 0.72 cm LA dimension: 3.7 cm LVIDd: 4.5 cm ACS: 1.9 cm LVIDs: 3.4 cm LVPWd: 0.98 cm IVSs: 0.88 cm LVPWs: 1.3 cm EDV(Teich): 90.2 ml ESV(Teich): 49.1 ml Doppler Measurements & Calculations MV E max clint: 72.8 cm/sec Ao V2 max: 110.3 cm/sec MV A max clint: 47.9 cm/sec Ao max P.9 mmHg MV E/A: 1.5 MR max clint: 500.8 cm/sec TR max clint: 225.3 cm/sec MR max P.4 mmHg TR max P.3 mmHg Med Peak E' Clint: 5.5 cm/sec Med E/e': 13.3 Lat Peak E' Clint: 16.7 cm/sec Lat E/e': 4.4 Procedure A complete two-dimensional transthoracic echocardiogram was performed (2D, M-mode, Doppler and color flow Doppler). Left Ventricle The left ventricle is normal in size. Left ventricular systolic function is low normal. Ejection Frac tion = 50-55%. No regional wall motion abnormalities noted. Right Ventricle The right ventricle is normal size. The right ventricular systolic function is normal. Atria The left atrial size is normal. Right atrial size is normal. Redundant interatrial septum. Mitral Valve The mitral valve is normal in structure and function. There is mild to moderate mitral regurgitation. Tricuspid Valve The tricuspid valve is normal in structure and function. There is mild tricuspid regurgitation. Pulmo nary artery systolic pressure is at least 25 mmHg assuming RA pressure of 3 mmHg. Aortic Valve The aortic valve is normal in structure and function. No aortic regurgitation is present. Pulmonic Valve The pulmonic valve is not well visualized. Great Vessels The aortic root is normal size. Pericardium/Pleura There is no pericardial effusion. Interpretation Summary The left ventricle is normal in size. Left ventricular systolic function is low normal. No regional wall motion abnormalities noted. Ejection Fraction = 50-55%. The right ventricular systolic function is normal. The left atrial size is normal. Right atrial size is normal. Redundant interatrial septum There is mild to moderate mitral regurgitation. There is mild tricuspid regurgitation. Pulmonary artery systolic pressure is at least 25 mmHg assuming RA pressure of 3 mmHg There is no pericardial effusion. Previous study is not available for comparison Logan Glover MD 07/09/2018 12:55 PM
--- NOTE | 2018-07-09 15:44 | PN ---
Teaching Attending Note Name of Resident: Kristy Parra ATTENDING PHYSICIAN STATEMENT I saw and evaluated the patient. I reviewed the resident's note and discussed the case with the resident. I agree with the resident's findings and plan as documented. SUBJECTIVE:asymptomatic. denies CP, SOB, fever, chills, palpitations OBJECTIVE: Last Vital Signs Temp Pulse Resp BP Pulse Ox 97.9 F 77 18 126/88 98 07/09/18 10:00 07/09/18 10:00 07/09/18 10:00 07/09/18 10:00 07/09/18 09:00 General NAD ASSESSMENT AND PLAN: 62yo M with PMH HTN and dyslipidemia presented to the ER with CP and found to be in aflutter 1. New onset aflutter-rate now controlled. echo pending. started on xarelto. cont betablocker. will need ischemia eval and cardioversion as outpatient. close cardiac monitoring 2. JASPREET- due to medications vs CKD. likely baseline. u/s negative. 3. HTN- controlled. on losartan 4. Dyslipidemia- statin 5. DVT ppx- hep sq 6.d/c home pending echo results
--- NOTE | 2018-07-09 18:16 | DS ---
Physical Exam: SUBJECTIVE: Patient seen and examined at bedside. Without complaint. Tx plan discussed with daughter over phone. OBJECTIVE: Vital Signs Period Temp Pulse Resp BP Sys/Rey Pulse Ox Last 24 Hr 97.6 F-98.5 F 75-86 18-20 105-126/60-88 98-99 PHYSICAL EXAM GENERAL: The patient is awake, alert, and fully oriented, in no acute distress. HEAD: Normal with no signs of trauma. EYES: PERRL, extraocular movements intact, sclera anicteric, conjunctiva clear. ENT: Ears normal, nares patent, oropharynx clear without exudates, moist mucous membranes. NECK: Trachea midline, supple. LUNGS: Breath sounds equal, clear to auscultation bilaterally, no wheezes, no crackles, no accessory muscle use. HEART: +aflutter. no r/m/g ABDOMEN: Soft, nontender, nondistended, normoactive bowel sounds, no guarding EXTREMITIES: thin. 2+ pt pulses, warm, well-perfused, no edema. NEUROLOGICAL: Cranial nerves II through XII grossly intact. Normal speech PSYCH: Normal mood, normal affect. SKIN: Warm, dry, normal turgor LABS Laboratory Results 07/09/18 06:22 Sodium 139 Potassium 4.0 Chloride 104 Carbon Dioxide 31 Anion Gap 5 L BUN 16 Creatinine 1.4 H Est GFR (CKD-EPI)AfAm 61.97 Est GFR (CKD-EPI)NonAf 53.47 Random Glucose 80 Calcium 9.4 Phosphorus 3.4 Magnesium 2.4 Triglycerides 60 Cholesterol 165 Total LDL Cholesterol 82 HDL Cholesterol 75 H HOSPITAL COURSE: Date of Admission:07/06/18 Date of Discharge: 07/09/18 diagnosis: aflutter 62 y/o M with PMH HTN, HLD, ?arrhythmia, who presents to the ED who presents from urgent care c/o sensation of chest pounding and palpitations which began today. As per pt, this AM he developed sudden palpitations when he was at rest. States it was intermittent. Lasting for a few seconds before dissipating and then w/recurrence. Not associated with chest pain or SOB. This sensation continued when pt was at an urgent care today getting a routine physical exam. He was recommended to get an EKG as per routine of the checkup, however was found to have aflutter thus he was told to go to the ED for further evaluation. Denies ERNST, fever, chills, SOB, diaphoresis, or changes in urinary or bowel function. Of note, pt moved from [facility] one month ago. Got his insurance 1 week ago, and plans on residing in this country. Daughter at bedside is a nurse - states he has had multiple episodes of syncope while in [place]. Had w/u done with ECHO however was never told the result. At home takes asa 75mg (different dose there) , losartan 50mg qd, lipitor 10mg qd. Pt ambulates on own at baseline. Pt was admitted to hospital and his aflutter rate was controlled w/metoprolol tart 25 BID. He was also initially a/c with lovenox, then transitioned to aspirin and finally to xarelto which he was d/c on. Was seen by cardio and losartan dose was changed from 50mg qd to 25mg qd d/t likely CKD (Cr 1.4 constant throughout stay). Renal sono was unremarkable. ECHO revealed:EF 50-55% . no reg wall motion abnormalities. rvsf normal. redundant interatrial septum. mild to mod MR. mild TR. no pericardial effusion.As per cardio, pt will need eventual stress test and possible DCCV as outpatient. Minutes to complete discharge: 44 Discharge Summary Reason For Visit: ATRIAL FLUTTER Condition: Stable - Instructions Diet, Activity, Other Instructions: You were in the hospital because you had a fast heart rate called atrial flutter. While you were here, you were managed on a heart monitoring floor. You had an ECHO done (picture taken of your heart) which was normal. You were also started on a blood thinner and medication to control your heart rate. You are being discharged home. Medications You have been started on new medications. Please take the following: -Metoprolol tartate 25mg twice a day. This will help control your fast heart rate. -Xarelto 20mg daily. This is a blood thinner. it can make it easier for you to have bruising. If you develop bleeding, or notice blood in your urine or stool, or vomit blood please go to the hospital or call your doctor immediately. -Losartan was changed from 50mg to 25mg* because of your decreased kidney function. You may continue your other home medications. Follow up Please follow up with: 1. A primary care doctor, Dr. Angel in a week to discuss your visit (and establish care). 2. The dietary tech who saw you in the hospital - Dr. Fan in a week. You may need a cardioversion (procedure to improve your heart rate and atrial flutter), and a stress test in the near future. If you develop chest pain, palpitations, or become dizzy please go to the hospital Referrals: Jet Angel MD [Staff Physician] - 1 Week Baudilio Fan MD [Staff Physician] - 1 Week Disposition: HOME - Home Medications Comprehensive Discharge Medication List: Ambulatory Orders Atorvastatin Calcium [Lipitor] 10 mg PO DAILY 07/06/18 Losartan Potassium [Cozaar -] 25 mg PO DAILY #30 tablet 07/09/18 Metoprolol Tartrate [Lopressor -] 25 mg PO BID #60 tablet 07/09/18 Rivaroxaban [Xarelto -] 20 mg PO DAILY@1800 #30 tablet 07/09/18 This patient is new to me today: No Emergency Visit: No Critical Care patient: No - Discharge Referral Referred to [facility] No
== END 2018-07-09 14:57 | disposition home or self-care (01) | DRG 201 ==
LOC: JER 17:43 → JERBED 20:44 → J4W 21:56
PROVIDERS: ADMIT Internal Medicine; ATTEND Internal Medicine
DX: I48.92 Unspecified atrial flutter (principal); N17.9 Acute kidney failure, unspecified; E78.5 Hyperlipidemia, unspecified; R07.9 Chest pain, unspecified; I13.10 Hypertensive heart and chronic kidney disease without heart failure, with stage 1 through stage 4 chronic kidney disease, or unspecified chronic kidney disease; D53.9 Nutritional anemia, unspecified; N18.3 Chronic kidney disease, stage 3 (moderate)
CPT/HCPCS: 36415; 71045-TC-FY; 76775-TC; 80048; 80053; 80061; 82465; 82550; 82553; 82565; 82607; 82746; 83721; 83735; 83880; 84100; 84156; 84443; 84484; 85025; 85610; 85730; 93005; 93010; 93306-TC; 99284-25; J1644; J7030

== ENCOUNTER 2018-10-31 13:10 | Emergency (ER) | payer OTHER ==
--- NOTE | 2018-10-31 13:17 | PDOC ---
Rapid Medical Evaluation Time Seen by Provider: 10/31/18 13:15 Medical Evaluation: Allergies Allergy/AdvReac Type Severity Reaction Status Date / Time No Known Allergies Allergy Verified 07/06/18 17:55 10/31/18 13:15 HPI: 2 months s/p cardiac ablation with R leg numbness PE: Thigh and calf non tender and floppy Orders: Nothing Discharge Disposition - Diagnosis Lumbar radiculopathy - Referrals - Patient Instructions - Post Discharge Activity
[2018-10-31 13:18] VITALS: BP 110/68; PULSE 69; TEMP 98; BMI 21.2
--- NOTE | 2018-10-31 13:55 | PDOC ---
History of Present Illness - General Chief Complaint: Back Pain Stated Complaint: RT. FOOT NUMBNESS Time Seen by Provider: 10/31/18 13:15 History Source: Patient, Family - History of Present Illness Timing/Duration: other Past History - Past Medical History Allergies/Adverse Reactions: Allergies Allergy/AdvReac Type Severity Reaction Status Date / Time No Known Allergies Allergy Verified 10/31/18 13:19 Home Medications: Ambulatory Orders Atorvastatin Calcium [Lipitor] 10 mg PO DAILY 07/06/18 Losartan Potassium [Cozaar -] 25 mg PO DAILY #30 tablet 07/09/18 Metoprolol Tartrate [Lopressor -] 25 mg PO BID #60 tablet 07/09/18 Rivaroxaban [Xarelto -] 20 mg PO DAILY@1800 #30 tablet 07/09/18 Cardiac Disorders: Yes (CARDIAC ABLASION 2 MONTHS AGO) COPD: No HTN: Yes Hypercholesterolemia: Yes Lung CA: Yes (depression) - Psycho Social/Smoking Cessation Hx Smoking History: Never smoked Have you smoked in the past 12 months: No Hx Alcohol Use: No Drug/Substance Use Hx: No Review of Systems - Review of Systems Constitutional: No: Chills, Fever Respiratory: No: Shortness of Breath Cardiac (ROS): No: Chest Pain, Palpitations Musculoskeletal: No: Back Pain, Joint Pain, Joint Swelling Neurological: No: Tingling, Weakness *Physical Exam - Vital Signs Last Vital Signs Temp Pulse Resp BP Pulse Ox 98.0 F 69 16 110/68 99 10/31/18 13:15 10/31/18 13:15 10/31/18 13:15 10/31/18 13:15 10/31/18 13:15 - Physical Exam General Appearance: Yes: Appropriately Dressed. No: Apparent Distress HEENT: positive: Normal Voice Neck: positive: Supple Respiratory/Chest: negative: Respiratory Distress Gastrointestinal/Abdominal: positive: Normal Bowel Sounds, Soft. negative: Tender, Distended, Guarding, Rebound, Hernia, Mass Musculoskeletal: negative: CVA Tenderness Extremity: negative: Normal Range of Motion, Tender, Swelling Integumentary: positive: Dry, Warm Neurologic: positive: Fully Oriented, Alert, Normal Mood/Affect, Motor Strength 5/5. negative: Sensory Deficit Medical Decision Making - Medical Decision Making Medical Decision Makin:30 pm 63 yo M, HTN, HLD, aflutter s/p ablation 2 months ago at [facility], f/u cards at [facility], here w/ R thigh pain. Pt endorses history of chronic back pain, sometimes radiating to right thigh, but that this morning right thigh pain was more severe and was unable to ambulate. Symptoms since improved. Patient denies sensory changes, lower extremity weakness, bladder or bowel incontinence. Daughter, however, reports that patient was complaining of some numbness to thigh at some point. No acute sxs, n/v/f/c See exam R thigh pain Recurrent Since improved ? Sciatica given chronic back pain per hx vs [facility], given cardiac cath for ablation 2 months ago, potential complication considered but no groin pain/ swelling and unlikely given time out from procedure as was d/w family Pt declines pain meds at this time Exam unremarkable and beraing weight w/ no obvious difficulty in ER Dc to return to ED as needed, has upcoming PMD f/u in 5 days per daughter Discharge - Discharge Information Problems reviewed: Yes Clinical Impression/Diagnosis: Leg numbness Condition: Stable Disposition: HOME - Follow up/Referral - Patient Discharge Instructions Additional Instructions: The cause of your numbness is unclear at this time but you will need further evaluation by your PMD - Post Discharge Activity
== END 2018-10-31 14:23 | disposition home or self-care (01) ==
LOC: JER 13:10
DX: R20.0 Anesthesia of skin (principal); I10 Essential (primary) hypertension; E78.00 Pure hypercholesterolemia, unspecified; F41.9 Anxiety disorder, unspecified; Z85.118 Personal history of other malignant neoplasm of bronchus and lung; I48.92 Unspecified atrial flutter; Z79.01 Long term (current) use of anticoagulants
CPT/HCPCS: 99281-25

== ENCOUNTER 2018-12-30 08:31 | Observation (INO) | payer OTHER ==
--- NOTE | 2018-12-30 09:40 | PDOC ---
History of Present Illness - General Chief Complaint: Lightheaded Stated Complaint: DIZINESS Time Seen by Provider: 12/30/18 08:38 History Source: Patient Exam Limitations: No Limitations - History of Present Illness Initial Comments: 01/01/19 07:14 HPI: 63M PMH AF on eliquis s/p ablation, HTN, HLD BIBEMS with constant dizziness ( room spinning) that started approximately 9pm last night. Pt woke up feeling more dizzy, with associated diplopia that resolved after vomiting. Endorses n/ v. Denies numbness, tingling, weakness. Pt states symptoms improving. Denies cp/ palpitations, sob, diarrhea. Atraumatic. Hx w/ assistance from pt daughter at bedside NIH Stroke Scale - Last Known Well Date/Time & Onset Date Last Known Well: 12/29/18 Time Last Known Well: 21:00 - Initial Evaluation Level of consciousness: Alert Ask patient the month and their age: Answers both correctly Ask patient to open & close eyes; make fist and let go: Obeys both correctly Best gaze (horizontal eye movement): Normal Visual field testing: No visual field loss Facial paresis (Show teeth/raise eyebrows/close eyes tight): Normal symmetrical movement Motor Function: Left Arm: Normal Motor Function: Right Arm: Normal (extends arm 90 (or 45) degrees for 10 seconds without drift Motor Function: Left Leg: Normal (extends leg 30 degrees for 5 seconds without drift) Motor Function: Right Leg: Normal (extends leg 30 degrees for 5 seconds without drift) Limb Ataxia: Present in two limbs Sensory(Use pinprick test arms,legs,trunk,face/side to side): Normal Best language (Describe picture, name items, read sentences): No Aphasia Dysarthria (read several words): Normal articulation Extinction and Inattention: No abnormality - Total Score NIH Stroke Scale Score: 2 Past History - Past Medical History Allergies/Adverse Reactions: Allergies Allergy/AdvReac Type Severity Reaction Status Date / Time No Known Allergies Allergy Verified 12/30/18 08:45 Home Medications: Ambulatory Orders Losartan Potassium [Cozaar -] 25 mg PO DAILY #30 tablet 07/09/18 Gabapentin 300 mg PO BID 12/30/18 Metoprolol Succinate [Toprol XL -] 25 mg PO DAILY 12/30/18 Nabumetone [Relafen -] 500 mg PO BID 12/30/18 Tamsulosin HCl 0.4 mg PO DAILY 12/30/18 Atorvastatin Ca [Lipitor] 40 mg PO HS #30 tablet 12/31/18 Rivaroxaban [Xarelto -] 20 mg PO DAILY@1800 tablet 12/31/18 Cardiac Disorders: Yes (CARDIAC ABLASION) COPD: No HTN: Yes Hypercholesterolemia: Yes Lung CA: Yes (depression) - Psycho Social/Smoking Cessation Hx Smoking History: Unknown if ever smoked Have you smoked in the past 12 months: No Hx Alcohol Use: No Drug/Substance Use Hx: No Review of Systems - Review of Systems Able to Perform ROS?: Yes Comments:: 01/01/19 07:14 ROS: CONSTITUTIONAL: Denies F / C HEENT: Endorses dizziness, resolved diplopia. Denies headache, lightheadedness, changes in hearing. RESP: Denies SOB, cough CARD: Denies chest pain, palpitations GI: Denies N / V / D, abdominal pain : Denies dysuria, frequency SKIN: Denies rashes NEURO: Denies numbness, tingling, weakness Is the patient limited Croatian proficient: Yes *Physical Exam - Vital Signs Last Vital Signs Temp Pulse Resp BP Pulse Ox 97.9 F 74 16 136/89 100 12/30/18 08:35 12/30/18 08:35 12/30/18 08:35 12/30/18 08:35 12/30/18 08:35 - Physical Exam Comments: 01/01/19 07:14 PE: GEN: NAD, comfortable. AAOx3 HEENT: NC/AT, CNi II-XII intact, EOMI, PERRLA. No facial asymmetry. Normal voice. Supple neck w/ FROM. CV: S1/S2, RRR, no m/r/g LUNG: CTAB, no wheezes, crackles, rales, rhonchi. GI: soft, ndnt, +BS, no guarding, no rebound. EXTREMITIES: No obvious deformities of all extremities. SKIN: warm, dry, normal turgor PSYCH: normal mood and affect NEURO: 5/5 strength UE and LE b/l. Symmetric sensation. Pronator drift neg. Romberg neg. Ataxic gait. Mild ataxia on finger to nose testing (occasional misses); normal heel-theodore. +DTRs, symmetric. ED Treatment Course - LABORATORY CBC & Chemistry Diagram: 11/25/19 05:20 12/31/18 05:20 - RADIOLOGY Radiology Studies Ordered: Category Date Time Status HEAD CT WITHOUT CONTRAST [CT] Stat CT Scan 12/30/18 09:30 Ordered CHEST X-RAY PORTABLE* [RAD] Stat Radiology 12/30/18 09:30 Ordered Medical Decision Making - Medical Decision Making 12/30/18 09:51 MDM: 63M w/ dizziness since 9pm last night. Ataxic gait with mild FTN ataxia. CVA/TIA work up - labs - CXR - EKG - CT head - Neuro c/s NIHSS 2 12/30/18 10:31 no acute path on CXR 12/30/18 11:[address] head Neuro c/s - Pt seen Dr. Murdock in the past; Dr. Rivas flight operations manager; Discussed pt w/ Dr. Rivas who is concerned for a possible posterior circulation stroke; recs MRI , admit Admit 12/30/18 12:15 Discussed w/ admitting resident // Admitted Discharge - Discharge Information Problems reviewed: Yes Clinical Impression/Diagnosis: Lightheadedness Condition: Stable Disposition: HOME - Admission Yes - Follow up/Referral - Patient Discharge Instructions - Post Discharge Activity
[2018-12-30] MEDS ORDERED: SODIUM CHLORIDE 1,000 ML IV SCH (09:45)
[2018-12-30 10:28] LABS: HEMATOCRIT 43.7 % (35.4-49); HEMOGLOBIN 14.7 GM/dL (11.7-16.9); MCH 33.2 pg (25.7-33.7); MCHC 33.5 g/dl (32.0-35.9); PLATELET COUNT 190 K/MM3 (134-434); RBC 4.42 M/mm3 (4.00-5.60); RDW 14.2 % (11.9-15.9); WHITE BLOOD COUNT 4.2 K/mm3 (4.0-10.0)
[2018-12-30 10:29] LABS: BASO % 1.1 % (0-2.0); EOS % 0.9 % (0-4.5); LYMPH % 23.4 % (8-40); MEAN PLT VOLUME 8.9 fl (7.5-11.1); MONO % 7.9 % (3.8-10.2); NEUT % 66.7 % (42.8-82.8)
[2018-12-30 10:59] LABS: BILIRUBIN,TOTAL 0.5 mg/dL (0.2-1); BLOOD UREA NITROGEN 13.7 mg/dL (7-18); CALCIUM 9.4 mg/dL (8.5-10.1); CREATININE 1.4 mg/dL (0.55-1.3); POTASSIUM 4.1 mmol/L (3.5-5.1); TOT PROT 7.8 g/dl (6.4-8.2)
--- NOTE | 2018-12-30 12:21 | PN ---
Teaching Attending Note Name of Resident: Shannan Moreno ATTENDING PHYSICIAN STATEMENT I saw and evaluated the patient. I reviewed the resident's note and discussed the case with the resident. I agree with the resident's findings and plan as documented. SUBJECTIVE: Pt is a 63 yo M with PMHx of HTN, CKD, aflutter s/p ablation, HLD, presenting with a hx of dizziness x 2 days. tHIS MORning the dizziness continued with "double vision" but recent dx of bilateral cataracts. hx of b/l peripheral neuropathy follows with Dr Murdock (was on gabapentin 300mg and nabumetone). Per daughter, at baseline pt is unable to stand for a long time. Pt follows Zhao Fan and Dr Cruz. as an outpatient. Per ED, they discussed with Dr Rivas who wanted to rule out posterior stroke and requested MRI. OBJECTIVE: Vital Signs Temperature 97.9 F 12/30/18 08:35 Pulse Rate 74 12/30/18 08:35 Respiratory Rate 16 12/30/18 08:35 Blood Pressure 136/89 12/30/18 08:35 O2 Sat by Pulse Oximetry (%) 100 12/30/18 08:35 GENERAL: The patient is awake, alert, and fully oriented, in no acute distress. HEAD: Normal with no signs of trauma. EYES: PERRL, extraocular movements intact, sclera anicteric, conjunctiva clear. ENT: Ears normal, oropharynx clear without exudates, moist mucous membranes. NECK: Trachea midline, full range of motion, supple. LUNGS: Breath sounds equal, clear to auscultation bilaterally, no wheezes, no crackles, no accessory muscle use. HEART: Regular rate and rhythm, S1, S2 without murmur, rub or gallop. ABDOMEN: Soft, nontender, nondistended, normoactive bowel sounds, no guarding, no rebound, no hepatosplenomegaly, no masses. EXTREMITIES: 2+ pulses, warm, well-perfused, no edema. NEUROLOGICAL: Cranial nerves II through XII grossly intact. Normal speech, gait not observed. PSYCH: Normal mood, normal affect. SKIN: Warm, dry, normal turgor, no rashes or lesions noted CBCD WBC 4.2 K/mm3 (4.0-10.0) 12/30/18 09:50 RBC 4.42 M/mm3 (4.00-5.60) 12/30/18 09:50 Hgb 14.7 GM/dL (11.7-16.9) 12/30/18 09:50 Hct 43.7 % (35.4-49) 12/30/18 09:50 MCV 99.0 fl (80-96) H 12/30/18 09:50 MCHC 33.5 g/dl (32.0-35.9) 12/30/18 09:50 RDW 14.2 % (11.9-15.9) 12/30/18 09:50 Plt Count 190 K/MM3 (134-434) D 12/30/18 09:50 MPV 8.9 fl (7.5-11.1) 12/30/18 09:50 CMP Sodium 138 mmol/L (136-145) 12/30/18 09:50 Potassium 4.1 mmol/L (3.5-5.1) 12/30/18 09:50 Chloride 107 mmol/L (98-107) 12/30/18 09:50 Carbon Dioxide 25 mmol/L (21-32) 12/30/18 09:50 Anion Gap 7 MMOL/L (8-16) L 12/30/18 09:50 BUN 13.7 mg/dL (7-18) 12/30/18 09:50 Creatinine 1.4 mg/dL (0.55-1.3) H 12/30/18 09:50 Random Glucose 93 mg/dL (74-106) 12/30/18 09:50 Calcium 9.4 mg/dL (8.5-10.1) 12/30/18 09:50 Total Bilirubin 0.5 mg/dL (0.2-1) 12/30/18 09:50 AST 31 U/L (15-37) 12/30/18 09:50 ALT 45 U/L (13-61) 12/30/18 09:50 Alkaline Phosphatase 59 U/L (45-117) 12/30/18 09:50 Total Protein 7.8 g/dl (6.4-8.2) 12/30/18 09:50 Albumin 4.0 g/dl (3.4-5.0) 12/30/18 09:50 CARDIAC ENZYMES Creatine Kinase 190 U/L (26-308) 12/30/18 09:50 Troponin I < 0.02 ng/ml (0.00-0.05) 12/30/18 09:50 Current Medications Generic Name Dose Route Start Last Admin Trade Name Jacob PRN Reason Stop Dose Admin Aspirin 81 mg 12/30/18 12:30 Ecotrin - PO DAILY EMELY Atorvastatin Calcium 40 mg 12/30/18 22:00 Lipitor - PO HS [facility] Sodium Chloride 1,000 mls @ 42 mls/hr 12/30/18 09:45 Normal Saline - IV ASDIR [facility] Home Medications Medication Instructions Recorded Atorvastatin Calcium [Lipitor] 10 mg PO DAILY 07/06/18 Losartan Potassium [Cozaar -] 25 mg PO DAILY #30 tablet 07/09/18 Gabapentin 300 mg PO BID 12/30/18 Metoprolol Succinate [Toprol Xl -] 25 mg PO DAILY 12/30/18 Nabumetone [Relafen -] 500 mg PO BID 12/30/18 Rivaroxaban [Xarelto -] 20 mg PO HS 12/30/18 Tamsulosin HCl 0.4 mg PO DAILY 12/30/18 ECHO July 2018- EF 50-55%, nl LVSF,nl RVSF, nl R/L atrial wall size, no wall motion abnormalities noted, mild to mod MR, mild TR, PASP at least 25mmHg, no pericardial effusion. ASSESSMENT AND PLAN: Pt is a 63 yo M with PMHx of HTN, CKD, aflutter s/p ablation, HLD, presenting with a hx of dizziness x 2 days. tHIS MORning the dizziness continued with associated "double vision" although the pt reports prior diagnosis of bilateral cataracts. He has had b/l peripheral neuropathy and follows Dr Murdock (was on gabapentin 300mg and nabumetone). Per daughter, at baseline pt is unable to stand for a long time. Pt follows Zhao Fan and Dr Cruz. as an outpatient. Per ED, they discussed with Dr Rivas who wanted to rule out posterior stroke and requested MRI. #dizziness R/O posterior TIA/CVA; Neg CT; MRI/MRA brain/neck pending ASA 81mg given, neurology on board will discuss antiplatelet/AC #HTN- continue metoprolol, losartan #CKD- Stable at 1.4 #aflutter s/p ablation-rate controlled HLD- change lipitor 10mg to 40mg HS Fluids:No standing fluids Electrolytes: Replete as needed Diet: Sodum controlled diet PPx: Cont xarelto obs tele, follow MRI and MRA result
[2018-12-30 12:22] LABS: PH,URINE >= 9.0 (5.0-8.0); URINE APPEARANCE TURBID; URINE BILIRUBIN NEGATIVE (NEGATIVE); URINE COLOR YELLOW; URINE GLUCOSE (UA) NEGATIVE (NEGATIVE); URINE KETONE NEGATIVE (NEGATIVE); URINE LEUK ESTERASE NEGATIVE (NEGATIVE); URINE NITRITE NEGATIVE (NEGATIVE); URINE PROTEIN NEGATIVE (NEGATIVE); URINE UROBILINOGEN 0.2 mg/dL (0.2-1.0)
--- NOTE | 2018-12-30 12:45 | PDOC ---
Documentation entered by Carlos Pelletier SCRIBE, acting as scribe for Manuel Jones MD. Manuel Jones MD: This documentation has been prepared by the Prabhu crandall Nirvannie, SCRIBE, under my direction and personally reviewed by me in its entirety. I confirm that the documentation accurately reflects all work, treatment, procedures, and medical decision making performed by me. Attending Attestation - Resident Resident Name: Jose Dunaway - ED Attending Attestation I have performed the following: I have examined & evaluated the patient, The case was reviewed & discussed with the resident, I agree w/resident's findings & plan, Exceptions are as noted - HPI HPI: 12/30/18 11:31 The patient is a 63 year old male, with a significant past medical history of HTN, Afib (on Eliquis, s/p ablation), and HLD, who presents to the emergency department via EMS with, 1.5 days of progressively dizziness. As per patient, his symptoms onset at 9pm last night and this morning the symptoms have since worsened with associated diplopia (resolved) and one episode of NBNB emesis. He denies any changes in strength/sensation, focal weakness, or headache. He denies any recent fevers or chills. He denies any recent diarrhea or constipation. He denies any recent chest pain or shortness of breath. He denies any recent dysuria, frequency, urgency or hematuria. Allergies: NKDA - Physicial Exam PE: 12/30/18 11:31 Agree with resident exam - Medical Decision Making 12/30/18 11:31 63-year-old male with a history of A. fib status post ablation on Eliquis, hypertension, hyperlipidemia presents the emergency department with room spinning dizziness since 9 PM last night. Symptoms have been symptom constant but worse this morning and became associated with multiple episodes of nonbloody nonbilious emesis as well as diplopia for 2 to 3 minutes. In the emergency department, patient appears uncomfortable with multiple episodes of nonbloody nonbilious emesis. Exam remarkable for abnormal [id number] and ataxia with gait. TIA versus CVA stroke work-up has been initiated. Thus far labs with no acute findings and CT head negative. Will order MRI MRA and admit. 12/30/18 12:00 Case discussed in detail with admitting physician Dr. Dallas including history, physical exam and ancillary studies. Admitting physician has assumed care for the patient, will follow all pending diagnostics and will complete the evaluation and treatment.
[2018-12-30] MEDS ORDERED: ASPIRIN COATED 81 MG TABLET.EC ONE (12:49)
[2018-12-30] MEDS: ASPIRIN COATED 81 MG TABLET.EC PO SCH (12:52)
[2018-12-30 12:59] LABS: INR 1.25 (0.83-1.09); PROTHROMBIN TIME (PATIENT) 14.8 SEC (9.7-13.0)
--- NOTE | 2018-12-30 13:47 | EKG ---
Test Reason : Blood Pressure : / mmHG Vent. Rate : 074 BPM Atrial Rate : 074 BPM P-R Int : 148 ms QRS Dur : 076 ms QT Int : 378 ms P-R-T Axes : 068 050 049 degrees QTc Int : 419 ms POOR DATA QUALITY, INTERPRETATION MAY BE ADVERSELY AFFECTED NORMAL SINUS RHYTHM POSSIBLE LEFT ATRIAL ENLARGEMENT BORDERLINE ECG WHEN COMPARED WITH ECG OF 06-JUL-2018 18:22, ST NO LONGER ELEVATED IN INFERIOR LEADS ST NO LONGER ELEVATED IN LATERAL LEADS QT HAS SHORTENED Confirmed by MD Sarai, Noe ([id number]) on 12/30/2018 1:46:45 PM Referred By: Confirmed By:Noe Moon MD
--- NOTE | 2018-12-30 15:00 | HP ---
CHIEF COMPLAINT: Dizziness x 2 days PCP: [facility] HISTORY OF PRESENT ILLNESS: Pt is a 63 yo M with PMHx of HTN, CKD, aflutter s/p ablation, HLD, presenting with a hx of dizziness x 2 days. Pt first noted dizziness about 9pm yesterday with associated room spinning, no tinnitus, no hearing impairment, no fall, no seizure. This morning the dizziness continued with associated "double vision" although the pt reports prior diagnosis of bilateral cataracts. He has had b/l peripheral neuropathy and follows Dr Murdock (was on gabapentin 300mg and nabumetone). Per daughter, at baseline pt is unable to stand for long. No prior fevers or cough, no chest pain, no falls, no dysuria or change in bowel habits. Pt follows Zhao Fan and Dr Cruz. Per ED, they discussed with Dr Rivas who wanted to rule out posterior stroke and requested MRI. ECHO July 2018- EF 50-55%, nl LVSF,nl RVSF, nl R/L atrial wall size, no wall motion abnormalities noted, mild to mod MR, mild TR, PASP at least 25mmHg, no pericardial effusion. ER course was notable for: (1) BUN/cr-13.7/1.4 (2)CT head neg, CXR-neg, UA neg, (3)NS@42/hr Recent Travel: [facility] PAST MEDICAL HISTORY: As above PAST SURGICAL HISTORY: s/p ablation August 2018, [facility] Social History: used to work as an junior accountant bookkeeper Smoking: denies Alcohol: denies Drugs: denies Family History: HTN - sisters, brothers Allergies No Known Allergies Allergy (Verified 12/30/18 08:45) HOME MEDICATIONS: Home Medications Medication Instructions Recorded Atorvastatin Calcium [Lipitor] 10 mg PO DAILY 07/06/18 Losartan Potassium [Cozaar -] 25 mg PO DAILY #30 tablet 07/09/18 Gabapentin 300 mg PO BID 12/30/18 Metoprolol Succinate [Toprol Xl -] 25 mg PO DAILY 12/30/18 Nabumetone [Relafen -] 500 mg PO BID 12/30/18 Rivaroxaban [Xarelto -] 20 mg PO HS 12/30/18 Tamsulosin HCl 0.4 mg PO DAILY 12/30/18 REVIEW OF SYSTEMS Neg except as noted above PHYSICAL EXAMINATION Vital Signs - 24 hr 12/30/18 08:35 Temperature 97.9 F Pulse Rate 74 Respiratory 16 Rate Blood Pressure 136/89 O2 Sat by Pulse 100 Oximetry (%) GENERAL: Awake, alert, and fully oriented, in no acute distress. HEAD: Normal with no signs of trauma. EYES: Pupils equal, round and reactive to light,b/l lens opacity noted, extraocular movements intact, sclera anicteric, conjunctiva clear. EARS, NOSE, THROAT: Ears normal, oropharynx clear without exudates. Moist mucous membranes. NECK: Normal range of motion, supple without lymphadenopathy, JVD, or masses. LUNGS: Breath sounds equal, clear to auscultation bilaterally. No wheezes, and no crackles. HEART: Regular rate and rhythm, normal S1 and S2 without murmur, rub or gallop. ABDOMEN: Soft, nontender, not distended, normoactive bowel sounds, no guarding, no rebound, no masses. MUSCULOSKELETAL: Normal range of motion at all joints. No bony deformities or tenderness. No CVA tenderness. UPPER EXTREMITIES: L peripheral line LOWER EXTREMITIES: 2+ pulses, warm, well-perfused. No calf tenderness. No peripheral edema. NEUROLOGICAL: Cranial nerves II-XII intact. Normal speech. Patient appared frail with no ataxia noted, dysdiachokinesis- nl, normal strength and tone, absent facial droop. Intact sensation. PSYCHIATRIC: Cooperative. Good eye contact. Appropriate mood and affect. NIHSS-0 (no ataxia) CBC, BMP 12/30/18 09:50 12/30/18 09:50 Laboratory Results - last 24 hr 12/30/18 12/30/18 12/30/18 09:50 09:50 09:50 WBC 4.2 RBC 4.42 Hgb 14.7 Hct 43.7 MCV 99.0 H MCH 33.2 MCHC 33.5 RDW 14.2 Plt Count 190 D MPV 8.9 Absolute Neuts (auto) 2.8 Neutrophils % 66.7 D Lymphocytes % 23.4 D Monocytes % 7.9 Eosinophils % 0.9 Basophils % 1.1 Nucleated RBC % 0 PT with INR INR PTT (Actin FS) Sodium 138 Potassium 4.1 Chloride 107 Carbon Dioxide 25 Anion Gap 7 L BUN 13.7 Creatinine 1.4 H Est GFR (CKD-EPI)AfAm 61.53 Est GFR (CKD-EPI)NonAf 53.09 Random Glucose 93 Calcium 9.4 Total Bilirubin 0.5 AST 31 ALT 45 Alkaline Phosphatase 59 Creatine Kinase 190 Creatine Kinase Index No Result Required. CK-MB (CK-2) < 1.0 Troponin I < 0.02 Total Protein 7.8 Albumin 4.0 Triglycerides 66 Cholesterol 210 H Total LDL Cholesterol 109 H HDL Cholesterol 85 H Urine Color Urine Appearance Urine pH Ur Specific [place] Urine Protein Urine Glucose (UA) Urine Ketones Urine Blood Urine Nitrite Urine Bilirubin Urine Urobilinogen Ur Leukocyte Esterase Blood Type Antibody Screen 12/30/18 12/30/18 12/30/18 09:50 12:03 12:17 WBC RBC Hgb Hct MCV MCH MCHC RDW Plt Count MPV Absolute Neuts (auto) Neutrophils % Lymphocytes % Monocytes % Eosinophils % Basophils % Nucleated RBC % PT with INR 14.80 H INR 1.25 H PTT (Actin FS) 34.0 Sodium Potassium Chloride Carbon Dioxide Anion Gap BUN Creatinine Est GFR (CKD-EPI)AfAm Est GFR (CKD-EPI)NonAf Random Glucose Calcium Total Bilirubin AST ALT Alkaline Phosphatase Creatine Kinase Creatine Kinase Index CK-MB (CK-2) Troponin I Total Protein Albumin Triglycerides Cholesterol Total LDL Cholesterol HDL Cholesterol Urine Color Yellow Urine Appearance Turbid Urine pH >= 9.0 H Ur Specific [place] 1.007 L Urine Protein Negative Urine Glucose (UA) Negative Urine Ketones Negative Urine Blood Negative Urine Nitrite Negative Urine Bilirubin Negative Urine Urobilinogen 0.2 Ur Leukocyte Esterase Negative Blood Type A POSITIVE Antibody Screen Negative Ambulatory Orders Atorvastatin Calcium [Lipitor] 10 mg PO DAILY 07/06/18 Losartan Potassium [Cozaar -] 25 mg PO DAILY #30 tablet 07/09/18 Gabapentin 300 mg PO BID 12/30/18 Metoprolol Succinate [Toprol Xl -] 25 mg PO DAILY 12/30/18 Nabumetone [Relafen -] 500 mg PO BID 12/30/18 Rivaroxaban [Xarelto -] 20 mg PO HS 12/30/18 Tamsulosin HCl 0.4 mg PO DAILY 12/30/18 Current Medications Aspirin (Ecotrin -) 81 mg PO DAILY [facility] Last Admin: 12/30/18 12:52 Dose: 81 mg Atorvastatin Calcium (Lipitor -) 40 mg PO HS [facility] Sodium Chloride (Normal Saline -) 1,000 mls @ 42 mls/hr IV ASDIR [facility] Last Admin: 12/30/18 10:00 Dose: 42 mls/hr Losartan Potassium (Cozaar -) 25 mg PO DAILY [facility] Metoprolol Succinate (Toprol Xl -) 25 mg PO DAILY EMELY Rivaroxaban (Xarelto) 15 mg PO HS [facility] ASSESSMENT/PLAN: Pt is a 63 yo M with PMHx of HTN, CKD, aflutter s/p ablation, HLD, presenting with a hx of dizziness x 2 days. Pt first noted dizziness about 9pm yesterday with associated room spinning, no tinnitus, no hearing impairment, no fall, no seizure. #dizziness R/O posterior TIA/CVA Pt reported blurred vision, ataxic gait, now improving Neg CT MRI/MRA brain/neck pending ASA 81mg given, neurology on board will discuss antiplatelet/AC Bedside swallow eval- passed, will hold off speech and swallow consult Recent ECHO July 2018, PT eval Losartan 25mg - cont Metoprolol 25mg- cont Cont xarelto - 20mg at home, per pharmacy with CKD, pt should be on 15mg Orthostatic BP #HTN- continue metoprolol, losartan #CKD- Stable at 1.4 #aflutter s/p ablation-rate controlled HLD- change lipitor 10mg to 40mg HS Fluids:No standing fluids Electrolytes: Replete as needed Diet: Sodum controlled diet PPx: Cont xarelto Visit type - Emergency Visit Emergency Visit: Yes ED Registration Date: 12/30/18 Care time: The patient presented to the Emergency Department on the above date and was hospitalized for further evaluation of their emergent condition. - New Patient This patient is new to me today: Yes Date on this admission: 12/30/18 - Critical Care Critical Care patient: No ATTENDING PHYSICIAN STATEMENT I saw and evaluated the patient. I reviewed the resident's note and discussed the case with the resident. I agree with the resident's findings and plan as documented. SUBJECTIVE: OBJECTIVE: ASSESSMENT AND PLAN:
[2018-12-30] MEDS ORDERED: LOSARTAN POTASSIUM 50 MG TABLET (FP) ONE (16:22)
[2018-12-30] MEDS: metoPROLOL SUCCINATE 25 MG TAB.SR.24H (FP) PO SCH (16:35)
[2018-12-30] MEDS: LOSARTAN POTASSIUM 25 MG TABLET PO SCH (16:35)
[2018-12-30 18:13] VITALS: BMI 23.6
--- NOTE | 2018-12-30 21:54 | CON.NEURO ---
Consult Consult Specialty:: NEUROLOGY-LYNNE ZHENG - History of Present Illness History of Present Illness: The patient is a 63 year old male, with a significant past medical history of HTN, Afib (on Eliquis, s/p ablation), and HLD, who presents to the emergency department via EMS with, 1.5 days of progressively dizziness. As per patient, his symptoms onset at 9pm last night and this morning the symptoms have since worsened with associated diplopia (resolved) and one episode of NBNB emesis. He denies any changes in strength/sensation, focal weakness, or headache. He denies any recent fevers or chills. He denies any recent diarrhea or constipation. He denies any recent chest pain or shortness of breath. He denies any recent dysuria, frequency, urgency or hematuria. Reports no symptoms now.Outpt. neurologist-Dr. Ventura. - Past Medical History Cardio/Vascular: Yes: HTN, Hyperlipdemia - Alcohol/Substance Use Hx Alcohol Use: No - Smoking History Smoking history: Never smoked Have you smoked in the past 12 months: No Home Medications - Allergies Allergies/Adverse Reactions: Allergies Allergy/AdvReac Type Severity Reaction Status Date / Time No Known Allergies Allergy Verified 12/30/18 08:45 - Home Medications Home Medications: Ambulatory Orders Atorvastatin Calcium [Lipitor] 10 mg PO DAILY 07/06/18 Losartan Potassium [Cozaar -] 25 mg PO DAILY #30 tablet 07/09/18 Gabapentin 300 mg PO BID 12/30/18 Metoprolol Succinate [Toprol Xl -] 25 mg PO DAILY 12/30/18 Nabumetone [Relafen -] 500 mg PO BID 12/30/18 Rivaroxaban [Xarelto -] 20 mg PO HS 12/30/18 Tamsulosin HCl 0.4 mg PO DAILY 12/30/18 Physical Exam-Neuro Vital Signs: Vital Signs Temperature 98.8 F 12/30/18 17:47 Pulse Rate 64 12/30/18 20:43 Respiratory Rate 20 12/30/18 20:43 Blood Pressure 106/58 L 12/30/18 20:43 O2 Sat by Pulse Oximetry (%) 99 12/30/18 17:47 Labs: CBC, BMP 12/30/18 09:50 12/30/18 09:50 INR, PTT INR 1.25 (0.83-1.09) H 12/30/18 12:17 - Neuro Exam Level Of Consciousness: Yes: Alert, Oriented to Person, Oriented to Place Cranial Nerves II-XII Intact: No (slight old diminished left nlf) DTR's: 1+ Right Tricep, 1+ Left Brachioradialis, 1+ Left Achilles, 1+ Right Achilles, 2+ Left Bicep, 2+ Right Bicep, 2+ Left Tricep, 2+ Right Brachioradialis Motor Strength: 5/5: Left Arm, Right Arm, Left Leg, Right Leg Gait: Ataxia (wide based, somewhat unsteady.) Imaging - Results Cat Scan: Report Reviewed (Without deficit) Assessment/Plan Pt is a 63 yo M with PMHx of HTN, CKD, aflutter s/p ablation, HLD, presenting with a hx of dizziness x 2 days. tHIS MORning the dizziness continued with associated "double vision" although the pt reports prior diagnosis of bilateral cataracts. He has had b/l peripheral neuropathy and follows Dr Murdock (was on gabapentin 300mg and nabumetone). Per daughter, at baseline pt is unable to stand for a long time. Pt follows Zhao Fan and Dr Cruz. as an outpatient. Per ED, they discussed with Dr Rivas who wanted to rule out posterior stroke and requested MRI. #Vertigo/diplopia/ataxia-likely posterior circ. TIA Neg CT; MRI/MRA brain/neck pending ASA 81mg given,would cont Eliquis, please request Dr. Ventura his neurologist to f/u tomorrow. Thank you, Jerardo Rivas MD
[2018-12-30] MEDS ORDERED: ATORVASTATIN CA 40 MG TABLET (FP) PO SCH (22:00)
[2018-12-30] MEDS ORDERED: RIVAROXABAN 15 MG TABLET PO SCH (22:00)
[2018-12-31 07:16] LABS: BASO % 0.8 % (0-2.0); EOS % 2.9 % (0-4.5); HEMOGLOBIN 14.7 GM/dL (11.7-16.9); LYMPH % 47.6 % (8-40); MCH 33.4 pg (25.7-33.7); MCHC 33.4 g/dl (32.0-35.9); MEAN PLT VOLUME 8.8 fl (7.5-11.1); MONO % 9.6 % (3.8-10.2); NEUT % 39.1 % (42.8-82.8); PLATELET COUNT 181 K/MM3 (134-434); RDW 14.5 % (11.9-15.9); WHITE BLOOD COUNT 4.5 K/mm3 (4.0-10.0)
[2018-12-31 07:54] LABS: ALBUMIN 3.9 g/dl (3.4-5.0); BILIRUBIN,TOTAL 0.7 mg/dL (0.2-1); BLOOD UREA NITROGEN 11.9 mg/dL (7-18); CREATININE 1.4 mg/dL (0.55-1.3); MAGNESIUM 2.2 mg/dL (1.8-2.4); PHOSPHOROUS 3.2 mg/dL (2.5-4.9); POTASSIUM 3.6 mmol/L (3.5-5.1); TOT PROT 7.6 g/dl (6.4-8.2)
[2018-12-31] MEDS: LOSARTAN POTASSIUM 25 MG TABLET PO SCH (10:14)
[2018-12-31] MEDS: metoPROLOL SUCCINATE 25 MG TAB.SR.24H (FP) PO SCH (10:14)
[2018-12-31] MEDS: ASPIRIN COATED 81 MG TABLET.EC PO SCH (10:14)
--- NOTE | 2018-12-31 10:42 | CON.NEURO ---
Consult - Past Medical History Cardio/Vascular: Yes: HTN, Hyperlipdemia - Alcohol/Substance Use Hx Alcohol Use: No - Smoking History Smoking history: Never smoked Have you smoked in the past 12 months: No Home Medications - Allergies Allergies/Adverse Reactions: Allergies Allergy/AdvReac Type Severity Reaction Status Date / Time No Known Allergies Allergy Verified 12/30/18 08:45 - Home Medications Home Medications: Ambulatory Orders Atorvastatin Calcium [Lipitor] 10 mg PO DAILY 07/06/18 Losartan Potassium [Cozaar -] 25 mg PO DAILY #30 tablet 07/09/18 Gabapentin 300 mg PO BID 12/30/18 Metoprolol Succinate [Toprol Xl -] 25 mg PO DAILY 12/30/18 Nabumetone [Relafen -] 500 mg PO BID 12/30/18 Rivaroxaban [Xarelto -] 20 mg PO HS 12/30/18 Tamsulosin HCl 0.4 mg PO DAILY 12/30/18 Physical Exam-Neuro Vital Signs: Vital Signs Temperature 97.8 F 12/31/18 06:00 Pulse Rate 53 L 12/31/18 06:00 Respiratory Rate 18 12/31/18 06:00 Blood Pressure 134/70 12/31/18 06:00 O2 Sat by Pulse Oximetry (%) 98 12/31/18 02:00 Labs: CBC, BMP 12/31/18 05:20 12/31/18 05:20 INR, PTT INR 1.25 (0.83-1.09) H 12/30/18 12:17 Assessment/Plan Thanks Dr Rivas for covering for the weekend. CC Dizziness HPI 63 year old male, PMHx of HTN,CKD,Atrial flutter s/p abation, hld . He presented to hospital for dizziness. He do have history of cataract. He describes dizziness as room spinning and now it is resolved. He also do have blurring of vision and double vision. patient was diagnoed with peripheral neuropathy and was on gabapentin . His symptoms are resolved and he was seen by Dr RIVAS over the weekend and was advice to have MRI of brain and mra of brain . ECHO July 2018- EF 50-55%, nl LVSF,nl RVSF, nl R/L atrial wall size, no wall motion abnormalities noted, mild to mod MR, mild TR, PASP at least 25mmHg, no pericardial effusion. Recent Travel: Immigrated from [facility] in June 2018 PAST MEDICAL HISTORY: As above PAST SURGICAL HISTORY: s/p ablation August 2018, [facility] Social History: used to work as an accountant tax Smoking: denies Alcohol: denies Drugs: denies Family History: HTN - sisters, brothers Allergies No Known Allergies Allergy (Verified 12/30/18 08:45) HOME MEDICATIONS: Home Medications Medication Instructions Recorded Atorvastatin Calcium [Lipitor] 10 mg PO DAILY 07/06/18 Losartan Potassium [Cozaar -] 25 mg PO DAILY #30 tablet 07/09/18 Gabapentin 300 mg PO BID 12/30/18 Metoprolol Succinate [Toprol Xl -] 25 mg PO DAILY 12/30/18 Nabumetone [Relafen -] 500 mg PO BID 12/30/18 Rivaroxaban [Xarelto -] 20 mg PO HS 12/30/18 Tamsulosin HCl 0.4 mg PO DAILY 12/30/18 ROS,FH, SH is unremarkable NEUROLOGICAL EXAMINATION Alert oriented x 3 follow command, neck is supple afebrile Eomi, pupils reactive no face asymmetry moving all ext sensation is mildly diminished distally in lower extremity reflex are diminished ct head unremarkable Assessment/Plan 63 year old male with multiple medical problem came with vertigo , most likey BPPV and now symptoms are resolved. Plan: Continue current level of care -PT and follow up on mri of brain and mra of brain as suggested by Dr RIVAS - Patient is stable and clinically improved alot Joshuaking you so much Austin Murdock MD
[2018-12-31 14:01] VITALS: BP 137/86; PULSE 102; TEMP 99.4
--- NOTE | 2018-12-31 15:48 | PN ---
Teaching Attending Note Name of Resident: Gabriela Dominguez ATTENDING PHYSICIAN STATEMENT I saw and evaluated the patient. I reviewed the resident's note and discussed the case with the resident. I agree with the resident's findings and plan as documented. SUBJECTIVE: Patient is comfortable with no acute distress, no shortness of breath. no new complains. OBJECTIVE: Vital Signs Temperature 99.4 F 12/31/18 14:00 Pulse Rate 102 H 12/31/18 14:00 Respiratory Rate 20 12/31/18 14:00 Blood Pressure 137/86 12/31/18 14:00 O2 Sat by Pulse Oximetry (%) 98 12/31/18 10:00 GENERAL: The patient is awake, alert, and fully oriented, in no acute distress. HEAD: Normal with no signs of trauma. EYES: PERRL, extraocular movements intact, sclera anicteric, conjunctiva clear. ENT: Ears normal, oropharynx clear without exudates, moist mucous membranes. NECK: Trachea midline, full range of motion, supple. LUNGS: Breath sounds equal, clear to auscultation bilaterally, no wheezes, no crackles, no accessory muscle use. HEART: Regular rate and rhythm, S1, S2 without murmur, rub or gallop. ABDOMEN: Soft, nontender, nondistended, normoactive bowel sounds, no guarding, no rebound, no hepatosplenomegaly, no masses. EXTREMITIES: 2+ pulses, warm, well-perfused, no edema. NEUROLOGICAL: Cranial nerves II through XII grossly intact. Normal speech, gait is stable . PSYCH: Normal mood, normal affect. SKIN: Warm, dry, normal turgor, no rashes or lesions noted CBCD WBC 4.5 K/mm3 (4.0-10.0) 12/31/18 05:20 RBC 4.40 M/mm3 (4.00-5.60) 12/31/18 05:20 Hgb 14.7 GM/dL (11.7-16.9) 12/31/18 05:20 Hct 44.0 % (35.4-49) 12/31/18 05:20 MCV 100.0 fl (80-96) H 12/31/18 05:20 MCHC 33.4 g/dl (32.0-35.9) 12/31/18 05:20 RDW 14.5 % (11.9-15.9) 12/31/18 05:20 Plt Count 181 K/MM3 (134-434) 12/31/18 05:20 MPV 8.8 fl (7.5-11.1) 12/31/18 05:20 CMP Sodium 139 mmol/L (136-145) 12/31/18 05:20 Potassium 3.6 mmol/L (3.5-5.1) 12/31/18 05:20 Chloride 105 mmol/L (98-107) 12/31/18 05:20 Carbon Dioxide 28 mmol/L (21-32) 12/31/18 05:20 Anion Gap 6 MMOL/L (8-16) L 12/31/18 05:20 BUN 11.9 mg/dL (7-18) 12/31/18 05:20 Creatinine 1.4 mg/dL (0.55-1.3) H 12/31/18 05:20 Random Glucose 89 mg/dL (74-106) 12/31/18 05:20 Calcium 9.0 mg/dL (8.5-10.1) 12/31/18 05:20 Total Bilirubin 0.7 mg/dL (0.2-1) 12/31/18 05:20 AST 33 U/L (15-37) 12/31/18 05:20 ALT 41 U/L (13-61) 12/31/18 05:20 Alkaline Phosphatase 60 U/L (45-117) 12/31/18 05:20 Total Protein 7.6 g/dl (6.4-8.2) 12/31/18 05:20 Albumin 3.9 g/dl (3.4-5.0) 12/31/18 05:20 CARDIAC ENZYMES Creatine Kinase 190 U/L (26-308) 12/30/18 09:50 Troponin I < 0.02 ng/ml (0.00-0.05) 12/30/18 18:29 Current Medications Generic Name Dose Route Start Last Admin Trade Name Freq PRN Reason Stop Dose Admin Aspirin 81 mg 12/30/18 12:30 12/31/18 10:14 Ecotrin - PO 81 mg DAILY EMELY Administration Atorvastatin Calcium 40 mg 12/30/18 22:00 12/30/18 21:45 Lipitor - PO 40 mg HS EMELY Administration Losartan Potassium 25 mg 12/30/18 15:15 12/31/18 10:14 Cozaar - PO 25 mg DAILY EMELY Administration Metoprolol Succinate 25 mg 12/30/18 15:15 12/31/18 10:14 Toprol Xl - PO 25 mg DAILY EMELY Administration Rivaroxaban 20 mg 12/30/18 22:00 12/30/18 21:44 Xarelto PO 15 mg HS EMELY Administration Home Medications Medication Instructions Recorded Losartan Potassium [Cozaar -] 25 mg PO DAILY #30 tablet 07/09/18 Gabapentin 300 mg PO BID 12/30/18 Metoprolol Succinate [Toprol XL -] 25 mg PO DAILY 12/30/18 Nabumetone [Relafen -] 500 mg PO BID 12/30/18 Tamsulosin HCl 0.4 mg PO DAILY 12/30/18 Aspirin Coated [Ecotrin -] 81 mg PO DAILY #30 tablet.ec 12/31/18 Atorvastatin Ca [Lipitor] 40 mg PO HS #30 tablet 12/31/18 ECHO July 2018- EF 50-55%, nl LVSF,nl RVSF, nl R/L atrial wall size, no wall motion abnormalities noted, mild to mod MR, mild TR, PASP at least 25mmHg, no pericardial effusion. MRI of the neck: Patent common,internal, external carotid arteries ,vertabral arteries. normal bifurcation of common carotid arteries. no stenosis. MRA of the neck: no evidence of aneurysm or vascular malformation. MRI of the head: nl ASSESSMENT AND PLAN: Pt is a 63 yo M with PMHx of HTN, CKD, aflutter s/p ablation, HLD, presenting with a hx of dizziness x 2 days. tHIS MORning the dizziness continued with associated "double vision" although the pt reports prior diagnosis of bilateral cataracts. He has had b/l peripheral neuropathy and follows Dr Murdock (was on gabapentin 300mg and nabumetone). Per daughter, at baseline pt is unable to stand for a long time. Pt follows Zhao Fan and Dr Cruz. as an outpatient. Per ED, they discussed with Dr Rivas who wanted to rule out posterior stroke and requested MRI. #dizziness improved , Tia/CVA is ruled out by Neg CT; MRI/MRA brain/neck as above, dc ASA 81mg #HTN- continue metoprolol, losartan #CKD- Stable at 1.4 #aflutter s/p ablation-rate controlled HLD- change lipitor 10mg to 40mg HS Fluids:No standing fluids Electrolytes: Replete as needed Diet: Sodum controlled diet PPx: Cont xarelto
[2018-12-31] MEDS ORDERED: RIVAROXABAN 15 MG TABLET PO SCH (16:07)
--- NOTE | 2018-12-31 16:32 | DS ---
Physical Exam: SUBJECTIVE: Patient seen and examined OBJECTIVE: Vital Signs Period Temp Pulse Resp BP Sys/Rey Pulse Ox Last 24 Hr 97.8 F-99.4 F 53-102 18-20 106-144/58-86 98-99 PHYSICAL EXAM GENERAL: The patient is awake, alert, and fully oriented, in no acute distress. EYES: PEERLA: EOMI no scleral icterus NECK:nod JVD; no lymphadenopathy LUNGS: cta b/l; no rales, rhonchi or wheezing HEART: Regular rate and rhythm, S1, S2 without murmur, rub or gallop. ABDOMEN: Soft, nontender, nondistended, normoactive bowel sounds, no guarding, no rebound, no hepatosplenomegaly, no masses. EXTREMITIES: 2+ pulses, warm, well-perfused, no edema. NEUROLOGICAL: Cranial nerves II through XII grossly intact. Normal speech, gait not observed. RUE/RLE 5/5 strength sensation throughout; LLE?LUE 5/5 strength sensation throghout PSYCH: Normal mood, normal affect. SKIN: Warm, dry, normal turgor, no rashes or lesions noted. LABS Laboratory Results - last 24 hr 12/30/18 12/31/18 12/31/18 18:29 05:20 05:20 WBC 4.5 RBC 4.40 Hgb 14.7 Hct 44.0 MCV 100.0 H MCH 33.4 MCHC 33.4 RDW 14.5 Plt Count 181 MPV 8.8 Absolute Neuts (auto) 1.7 Neutrophils % 39.1 L D Lymphocytes % 47.6 H D Monocytes % 9.6 Eosinophils % 2.9 D Basophils % 0.8 Nucleated RBC % 0 Sodium 139 Potassium 3.6 Chloride 105 Carbon Dioxide 28 Anion Gap 6 L BUN 11.9 Creatinine 1.4 H Est GFR (CKD-EPI)AfAm 61.53 Est GFR (CKD-EPI)NonAf 53.09 Random Glucose 89 Hemoglobin A1c % Calcium 9.0 Phosphorus 3.2 Magnesium 2.2 Total Bilirubin 0.7 AST 33 ALT 41 Alkaline Phosphatase 60 Troponin I < 0.02 Total Protein 7.6 Albumin 3.9 TSH 3.21 D 12/31/18 05:20 WBC RBC Hgb Hct MCV MCH MCHC RDW Plt Count MPV Absolute Neuts (auto) Neutrophils % Lymphocytes % Monocytes % Eosinophils % Basophils % Nucleated RBC % Sodium Potassium Chloride Carbon Dioxide Anion Gap BUN Creatinine Est GFR (CKD-EPI)AfAm Est GFR (CKD-EPI)NonAf Random Glucose Hemoglobin A1c % 5.6 Calcium Phosphorus Magnesium Total Bilirubin AST ALT Alkaline Phosphatase Troponin I Total Protein Albumin TSH HOSPITAL COURSE: Date of Admission:12/30/18 t is a 63 yo M with PMHx of HTN, CKD, aflutter s/p ablation, HLD, presenting with a hx of dizziness x 2 days. Pt first noted dizziness about 9pm yesterday with associated room spinning, no tinnitus, no hearing impairment, no fall, no seizure. This morning the dizziness continued with associated "double vision" although the pt reports prior diagnosis of bilateral cataracts. He has had b/l peripheral neuropathy and follows Dr Murdock (was on gabapentin 300mg and nabumetone). Per daughter, at baseline pt is unable to stand for long. No prior fevers or cough, no chest pain, no falls, no dysuria or change in bowel habits. head CT MRI/MRA all negative- patient walked 200 gfeet with PT his symptoms improved and he was stable to be discharged home with neuro follow up Date of Discharge: 12/31/18 Minutes to complete discharge: 35 Discharge Summary Problems reviewed: Yes Reason For Visit: DIZZINESS Condition: Stable - Instructions Diet, Activity, Other Instructions: You came to the emergency room with complaints of dizziness and trouble walking. We did both cat scans and MRI of your brain/neck which did not show any signs of stroke. You were seen by your neurologist while you were here. Your symptoms improved and you were stable to be discharged home. Please resume all of your home medications in addition: Please take Aspirin 81mg daily Your Lipitor was increased from 10mg to 40mg daily Please follow up with Dr. Murdock within one week Please follow up with your primary care physician within one week *if you begin to experience worsening dizziness, trouble walking , chest pains, shortness of breath, nausea/vomiting please return to the emergency room immediately Referrals: Charmaine Gonsalves [Other] - 1 Week Austin Murdock MD [Staff Physician] - 1 Week Disposition: HOME - Home Medications Comprehensive Discharge Medication List: Ambulatory Orders Losartan Potassium [Cozaar -] 25 mg PO DAILY #30 tablet 07/09/18 Gabapentin 300 mg PO BID 12/30/18 Metoprolol Succinate [Toprol XL -] 25 mg PO DAILY 12/30/18 Nabumetone [Relafen -] 500 mg PO BID 12/30/18 Tamsulosin HCl 0.4 mg PO DAILY 12/30/18 Atorvastatin Ca [Lipitor] 40 mg PO HS #30 tablet 12/31/18 Rivaroxaban [Xarelto -] 20 mg PO DAILY@1800 tablet 12/31/18 Problem List - Problems (1) Leg numbness Code(s): R20.0 - ANESTHESIA OF SKIN This patient is new to me today: Yes Date on this admission: 01/01/19 Emergency Visit: Yes ED Registration Date: 12/30/18 Care time: The patient presented to the Emergency Department on the above date and was hospitalized for further evaluation of their emergent condition. Critical Care patient: No - Discharge Referral Referred to [facility] No ATTENDING PHYSICIAN STATEMENT I saw and evaluated the patient. I reviewed the resident's note and discussed the case with the resident. I agree with the resident's findings and plan as documented. SUBJECTIVE: OBJECTIVE: ASSESSMENT AND PLAN:
[2018-12-31] MEDS ORDERED: RIVAROXABAN 20 MG TABLET PO SCH (18:00)
== END 2018-12-31 17:01 | disposition home or self-care (01) ==
LOC: JER 08:31 → JERBED 11:28 → INTOOBSV 11:28 → J4W 17:40
PROVIDERS: ADMIT Internal Medicine; ATTEND Internal Medicine
PROC: 3E0337Z Introduction of Electrolytic and Water Balance Substance into Peripheral Vein, Percutaneous Approach (ICD-10-PCS; principal; 2018-12-30)
DX: R42 Dizziness and giddiness (principal); I12.9 Hypertensive chronic kidney disease with stage 1 through stage 4 chronic kidney disease, or unspecified chronic kidney disease; N18.9 Chronic kidney disease, unspecified; E78.5 Hyperlipidemia, unspecified; I48.91 Unspecified atrial fibrillation; Z79.01 Long term (current) use of anticoagulants
CPT/HCPCS: 36415; 70450-TC; 70544-TC; 70547-TC; 70551-TC; 71045-TC-FY; 80053; 81003; 82465; 82550; 82553; 83036; 83718; 83721; 83735; 84100; 84443; 84478; 84484; 85025; 85610; 85730; 86850; 86900; 86901; 93005; 93010; 97116-GP; 97161-GP; 99285-25; G0378; J7030

== ENCOUNTER → 2019-03-15 | Day surgery (SDC) | payer OTHER ==
[2019-03-14 13:43] VITALS: BMI 22.8
[~2019-03-15] MED LIST: BUPIVACAINE HCL/PF 0.75% 10 ML VIAL NR ONE; IOHEXOL 180 MG/1 ML ML IJ ONE; LIDOCAINE HCL 1%, 10 MG/ML (20ML VIAL) INF ONE
[2019-03-15 13:55] VITALS: BP 129/73; PULSE 100; TEMP 99.1
== END | disposition home or self-care (01) ==
LOC: JASU-SURG 09:09
PROVIDERS: ATTEND Pain Medicine Pain Medicine
PROC: BR16YZZ Fluoroscopy of Lumbar Facet Joint(s) using Other Contrast (ICD-10-PCS; 2019-03-15)
PROC: 3E0T3BZ Introduction of Anesthetic Agent into Peripheral Nerves and Plexi, Percutaneous Approach (ICD-10-PCS; principal; 2019-03-15 11:00)
DX: M12.88 Other specific arthropathies, not elsewhere classified, other specified site (principal); M54.5 Low back pain

== ENCOUNTER 2019-03-29 07:53 | Day surgery (SDC) | payer OTHER ==
[2019-03-28 16:51] VITALS: BMI 22.8
--- NOTE | 2019-03-29 09:08 | HP ---
Admitting History and Physical - Admission Chief Complaint: Axial Low back pain History of Present Illness: Pt complains of Low back pain s/p 1 diagnostic MBB - Past Medical History Cardiovascular: Yes: HTN, Hyperlipdemia - Smoking History Smoking history: Never smoked Have you smoked in the past 12 months: No - Alcohol/Substance Use Hx Alcohol Use: No Home Medications - Allergies Allergies/Adverse Reactions: Allergies Allergy/AdvReac Type Severity Reaction Status Date / Time No Known Allergies Allergy Verified 03/29/19 08:17 - Home Medications Home Medications: Ambulatory Orders Losartan Potassium [Cozaar -] 25 mg PO DAILY #30 tablet 07/09/18 Gabapentin 300 mg PO BID 12/30/18 Metoprolol Succinate [Toprol XL -] 25 mg PO DAILY 12/30/18 Nabumetone [Relafen -] 500 mg PO BID 12/30/18 Tamsulosin HCl 0.4 mg PO DAILY 12/30/18 Atorvastatin Ca [Lipitor] 40 mg PO HS #30 tablet 12/31/18 Rivaroxaban [Xarelto -] 20 mg PO DAILY@1800 tablet 12/31/18 Physical Examination Vital Signs: Vital Signs Temperature 98.1 F 03/29/19 08:08 Pulse Rate 54 L 03/29/19 08:08 Respiratory Rate 18 03/29/19 08:08 Blood Pressure 129/76 03/29/19 08:08 O2 Sat by Pulse Oximetry (%) 100 03/29/19 08:07 Constitutional: Yes: Well Nourished, No Distress, Calm Eyes: Yes: Conjunctiva Clear HENT: Yes: WNL, Atraumatic, Normocephalic Neck: Yes: Trachea Midline Cardiovascular: Yes: Regular Rate and Rhythm Respiratory: Yes: Regular Musculoskeletal: Yes: Back Pain Assessment/Plan The patients pain is secondary to Lumbar spondylosis s/p one diagnostic Medial branch block. 1. I will perform second diagnostic lumbar medial branch block ar L3 L4 L5 bilateral .
[2019-03-29] MEDS ORDERED: BUPIVACAINE HCL/PF 0.75% 10 ML VIAL ONE (10:43)
[2019-03-29] MEDS ORDERED: LIDOCAINE HCL 1%, 10 MG/ML (20ML VIAL) ONE (10:43)
[2019-03-29] MEDS ORDERED: BUPIVACAINE HCL/PF 0.75% 10 ML VIAL NR ONE ×2 (10:48)
[2019-03-29] MEDS ORDERED: LIDOCAINE HCL 1%, 10 MG/ML (20ML VIAL) NR ONE (10:48)
[2019-03-29] MEDS ORDERED: IOHEXOL 180 MG/1 ML ML IJ ONE ×2 (10:48)
[2019-03-29 16:33] VITALS: BP 120/76; PULSE 58; TEMP 98.5
--- NOTE | 2019-03-30 16:59 | PROC ---
Procedure Note Procedure: Date: 03/29/2019 : 1955 Age: 63 Year(s) Sex: Male Name of the patient: Barbara Hernandes Preoperative Diagnosis: Lower back pain, Lumbar facet arthropathy Right/ Left Postoperative Diagnosis: Same Procedure Performed: Bilateral L3-L4-L5 medial branch blocks Anesthesia: Local Procedure: Procedure: After the risks and benefits were explained, informed consent was obtained. The patient was then taken to the procedure room and positioned prone on the procedure table. Time out was performed. The region overlying the appropriate vertebral bodies was identified using fluoroscopy. The skin was prepped and draped in the usual sterile fashion. The skin and soft tissues were anesthetized using 1% lidocaine. Using fluoroscopic guidance, 22 gauge 3.5 inch spinal needles were then introduced to the juncture of the superior articular processes and the transverse processes of the RIGHT L3 , L4, and L5 medial branches are located. Omnipaque 180 confirmed appropriate needle placement. There was no epidural or vascular flow observed. .75% bupivacaine was drawn into a syringe. 0.5cc of this solution was then injected at each level. The same procedure was repeated on the LEFT side at the same levels. The patient tolerated the procedure well and there were no complications. The patient was taken to the post procedure recovery area in good condition. Vital signs remained stable before, and after the procedure. The patient was given oral follow-up instructions.The patient was givena follow up appointment with me in the near future. Bebeto Pena D.O. ^
== END 2019-03-29 11:50 | disposition home or self-care (01) ==
LOC: JASU-SURG 07:53
PROVIDERS: ATTEND Pain Medicine Pain Medicine
PROC: 3E0T33Z Introduction of Anti-inflammatory into Peripheral Nerves and Plexi, Percutaneous Approach (ICD-10-PCS; 2019-03-29)
PROC: BR16YZZ Fluoroscopy of Lumbar Facet Joint(s) using Other Contrast (ICD-10-PCS; 2019-03-29)
PROC: 3E0T3BZ Introduction of Anesthetic Agent into Peripheral Nerves and Plexi, Percutaneous Approach (ICD-10-PCS; principal; 2019-03-29 10:00)
DX: M47.896 Other spondylosis, lumbar region (principal)
CPT/HCPCS: 76000-TC-FY

== ENCOUNTER 2019-04-13 14:45 | Emergency (ER) | payer OTHER ==
[2019-04-13 14:55] VITALS: BMI 22.6
--- NOTE | 2019-04-13 16:11 | PDOC ---
History of Present Illness - General Chief Complaint: Pain Stated Complaint: HICCUPS Time Seen by Provider: 04/13/19 15:21 History Source: Patient Exam Limitations: No Limitations - History of Present Illness Initial Comments: 04/13/19 16:01 Patient is a 63 year old male with h/o HTN, HLD, A-Futter with ablation, Chronic Lumbar pain, with recent Lumbar epidural radiotherapy on 04/12/19 brought by family for c/o hiccups since this morning. States the hiccups have been intermittent lasting for 15-20 mins but reoccurs within 30 mins. Patient denies any chest pain, sob, abd pain, nausea, vomiting. He has tried nothing for the hiccups. He was not NPO for the procedure and has been eating well post op. PMD: Dr. Schreiber PMHX: as above PSOCHX: neg etoh, drug, cig PFAMHX: Noncontributory ALL: NKDA GENERAL/CONSTITUTIONAL: [No fever or chills. No weakness. No weight change, ] HEAD, EYES, EARS, NOSE AND THROAT: [No change in vision. No ear pain or discharge. No sore throat.] CARDIOVASCULAR: [No chest pain or shortness of breath.] RESPIRATORY: [No cough, wheezing, or hemoptysis.] GASTROINTESTINAL: [No nausea, vomiting, diarrhea or constipation. No rectal bleeding.] GENITOURINARY: [No dysuria, frequency, or change in urination.] MUSCULOSKELETAL: [No joint or muscle swelling or pain. No neck (+) back pain.] SKIN AND BREASTS: [No rash or easy bruising.] NEUROLOGIC: [No headache, vertigo, loss of consciousness, or loss of sensation.] PSYCHIATRIC: [No depression or anxiety.] ENDOCRINE: [No increased thirst. No abnormal weight change.] HEMATOLOGIC/LYMPHATIC: [No anemia, easy bleeding, or history of blood clots.] ALLERGIC/IMMUNOLOGIC: [No hives or skin allergy. No latex allergy.] GENERAL: [The patient is awake, alert, and fully oriented, in no acute distress, not currently with hiccups] HEAD: [Normal with no signs of trauma.] EYES: [Pupils equal, round and reactive to light, extraocular movements intact, sclera anicteric, conjunctiva clear.] ENT: [Ears normal, nares patent, oropharynx clear without exudates. Moist mucous membranes.] NECK: [Normal range of motion, supple without lymphadenopathy, JVD, or masses.] LUNGS: [Breath sounds equal, clear to auscultation bilaterally. No wheezes, and no crackles.] HEART: [Regular rate and rhythm, normal S1 and S2 without murmur, rub.] ABDOMEN: [Soft, nontender, normoactive bowel sounds. No guarding, no rebound. No masses.] EXTREMITIES: [Normal range of motion, no edema. No clubbing or cyanosis. No cords, erythema, or tenderness.] NEUROLOGICAL: [Cranial nerves II through XII grossly intact. Normal speech, normal gait.] PSYCH: [Normal mood, normal affect.] SKIN: [Warm, Dry, normal turgor, no rashes or lesions noted.] Past History - Past Medical History Allergies/Adverse Reactions: Allergies Allergy/AdvReac Type Severity Reaction Status Date / Time No Known Allergies Allergy Verified 04/13/19 14:52 Home Medications: Ambulatory Orders Losartan Potassium [Cozaar -] 25 mg PO DAILY #30 tablet 07/09/18 Gabapentin 300 mg PO BID 12/30/18 Metoprolol Succinate [Toprol XL -] 25 mg PO DAILY 12/30/18 Nabumetone [Relafen -] 500 mg PO BID 12/30/18 Tamsulosin HCl 0.4 mg PO DAILY 12/30/18 Atorvastatin Ca [Lipitor] 40 mg PO HS #30 tablet 12/31/18 Rivaroxaban [Xarelto -] 20 mg PO DAILY@1800 tablet 12/31/18 Anemia: No Asthma: No Cancer: No Cardiac Disorders: Yes (CARDIACAFIB. ABLASION) CVA: No COPD: No CHF: No Dementia: No Diabetes: No GI Disorders: No Disorders: No HTN: Yes Hypercholesterolemia: Yes Liver Disease: No Seizures: No Thyroid Disease: No Lung CA: Yes (depression) - Surgical History Abdominal Surgery: No Appendectomy: No Cardiac Surgery: Yes (ABLATION) Cholecystectomy: No Lung Surgery: No Neurologic Surgery: No Orthopedic Surgery: No - Psycho Social/Smoking Cessation Hx Smoking History: Never smoked Have you smoked in the past 12 months: No Information on smoking cessation initiated: No Hx Alcohol Use: No Drug/Substance Use Hx: No Substance Use Type: None Hx Substance Use Treatment: No *Physical Exam - Vital Signs Last Vital Signs Temp Pulse Resp BP Pulse Ox 71 18 128/69 99 04/13/19 14:53 04/13/19 14:53 04/13/19 14:53 04/13/19 14:53 ED Treatment Course - LABORATORY CBC & Chemistry Diagram: 04/13/19 16:42 04/13/19 16:42 Medical Decision Making - Medical Decision Making 04/13/19 16:01 Patient is a 63 year old male with h/o HTN, HLD, A-Flutter with ablation, Chronic Lumbar pain, with recent Lumbar epidural radiotherapy on 04/12/19 brought by family for c/o hiccups since this morning. States the hiccups have been intermittent lasting for 15-20 mins but reoccurs within 30 mins. Patient denies any chest pain, sob, abd pain, nausea, vomiting. He has tried nothing for the hiccups. He was not NPO for the procedure and has been eating well post op. Patient with hiccups, currently asymptomatic. However will rule out cardiac cau ses Labs, EKG Thorazine 25 mg IM Reassess EKG: SR rate 66, normal axis, LVH, no ST-T wave changes. 04/13/19 17:30 Labs reviewed no acute findings except for a creatinine of 1.4. Troponin was negative. Patient received Thorazine and has had no hiccup events since being in the emergency room. I discussed the physical exam findings, ancillary test results and final diagnoses with the patient. I answered all of the patient's questions. The patient was satisfied with the care received and felt comfortable with the discharge plan and treatment plan. The Patient agrees to follow up with the [facility] physician within 24-72 hours. Discharge - Discharge Information Problems reviewed: Yes Clinical Impression/Diagnosis: Hiccups Condition: Stable Disposition: HOME - Follow up/Referral Referrals: Candie Cerda NP [Primary Care Provider] - - Patient Discharge Instructions Patient Printed Discharge Instructions: DI for Hiccups Additional Instructions: Your Discharge Instructions: You must call primary care physician within 24 hours to arrange follow-up. Return to the Emergency Department with any new, persistent or worsening sympt oms, for fever, chills, SOB, dizziness or any other concerning changes that may occur. - Post Discharge Activity
[2019-04-13] MEDS ORDERED: chlorproMAZINE HCL 25 MG/1 ML AMP IM ONE (16:29)
[2019-04-13] MEDS ORDERED: chlorproMAZINE HCL 25 MG/1 ML AMP ONE (16:44)
[2019-04-13 16:54] LABS: BASO % 0.6 % (0-2.0); EOS % 0.3 % (0-4.5); HEMATOCRIT 40.9 % (35.4-49); HEMOGLOBIN 13.8 GM/dL (11.7-16.9); LYMPH % 19.7 % (8-40); MCH 33.5 pg (25.7-33.7); MCHC 33.6 g/dl (32.0-35.9); MEAN CELL VOLUME 99.8 fl (80-96); MEAN PLT VOLUME 8.7 fl (7.5-11.1); MONO % 9.7 % (3.8-10.2); NEUT % 69.7 % (42.8-82.8); PLATELET COUNT 173 K/MM3 (134-434); RDW 14.2 % (11.9-15.9); WHITE BLOOD COUNT 10.8 K/mm3 (4.0-10.0)
[2019-04-13 17:24] LABS: ALBUMIN 3.9 g/dl (3.4-5.0); ALK PHOS 63 U/L (45-117); ANION GAP 8 MMOL/L (8-16); BILIRUBIN,TOTAL 0.3 mg/dL (0.2-1); BLOOD UREA NITROGEN 15.5 mg/dL (7-18); CALCIUM 8.9 mg/dL (8.5-10.1); CHLORIDE 108 mmol/L (98-107); CO2 27 mmol/L (21-32); CREATININE 1.4 mg/dL (0.55-1.3); GLUCOSE,RANDOM 80 mg/dL (74-106); POTASSIUM 4.1 mmol/L (3.5-5.1); SGOT/AST 21 U/L (15-37); SGPT/ALT 19 U/L (13-61); SODIUM 143 mmol/L (136-145); TOT PROT 7.7 g/dl (6.4-8.2)
[2019-04-13 17:42] VITALS: BP 125/67; PULSE 68; TEMP 98.1
--- NOTE | 2019-04-15 09:36 | EKG ---
Test Reason : Blood Pressure : / mmHG Vent. Rate : 066 BPM Atrial Rate : 066 BPM P-R Int : 170 ms QRS Dur : 090 ms QT Int : 382 ms P-R-T Axes : 074 049 052 degrees QTc Int : 400 ms NORMAL SINUS RHYTHM POSSIBLE LEFT ATRIAL ENLARGEMENT LEFT VENTRICULAR HYPERTROPHY ABNORMAL ECG WHEN COMPARED WITH ECG OF 30-DEC-2018 08:44, NO SIGNIFICANT CHANGE WAS FOUND Confirmed by Steven Willingham ([id number]) on 04/15/2019 9:36:28 AM Referred By: Confirmed By:Steven Willingham
== END 2019-04-13 17:42 | disposition home or self-care (01) ==
LOC: JER 14:45
PROC: 3E023NZ Introduction of Analgesics, Hypnotics, Sedatives into Muscle, Percutaneous Approach (ICD-10-PCS; principal; 2019-04-13)
DX: R06.6 Hiccough (principal); I10 Essential (primary) hypertension; E78.5 Hyperlipidemia, unspecified; I48.92 Unspecified atrial flutter; Z79.01 Long term (current) use of anticoagulants; M54.5 Low back pain; G89.29 Other chronic pain; Z98.890 Other specified postprocedural states
CPT/HCPCS: 36415; 80053; 82550; 82553; 84484; 85025; 93005; 93010; 99284-25

== ENCOUNTER 2020-11-22 10:28 | Emergency (ER) | payer OTHER ==
[2020-11-22 10:41] VITALS: BP 128/77; PULSE 76; TEMP 97.5; BMI 22.6
== END 2020-11-22 12:41 | disposition home or self-care (01) ==
LOC: JERFT 10:28
DX: K04.7 Periapical abscess without sinus (principal)
CPT/HCPCS: 99283-25